=== PATIENT | female | born 1965 | race Caucasian/White ===

== ENCOUNTER → 2017-02-05 | Outpatient (CLI) | payer OTHER ==
--- NOTE | 2017-02-05 14:17 | REPMRS ---
Patient History The patient states she has not had a clinical breast exam in over a year. Patient is postmenopausal. Family history of colorectal cancer in maternal grandfather at age 50 or over and colorectal cancer in maternal grandmother at age 50 or over. Digital Mammo Screening Bilat: February 05, 2017 - Exam #: [id number] Bilateral CC and MLO view(s) were taken. Technologist: Adriana Duval, Technologist No prior studies available for comparison. FINDINGS: The breast tissue is extremely dense which could obscure a lesion on mammography. There is no evidence of cancer on this mammogram. ASSESSMENT: BI-RADS/ACR category 2 mammogram. Benign finding(s). Recommendation Routine screening mammogram of both breasts in 1 year (for women over age 40). This mammogram was interpreted with the aid of an FDA-approved computer-aided dectection system. Electronically Signed By: Karri Nixon MD 02/05/17 [id number]
== END ==
LOC: M RAD 12:06
PROVIDERS: ATTEND Nurse Practitioner Family
DX: Z12.31 Encounter for screening mammogram for malignant neoplasm of breast (principal); Z78.0 Asymptomatic menopausal state

== ENCOUNTER → 2017-12-25 | Outpatient (REF) | payer OTHER | LOC: M LAB REF 19:03 | DX: R31.9 Hematuria, unspecified (principal) ==

== ENCOUNTER → 2017-12-25 | Outpatient (CLI) | payer OTHER | LOC: M WUC 16:08 | DX: R31.9 Hematuria, unspecified (principal); M54.5 Low back pain; R93.5 Abnormal findings on diagnostic imaging of other abdominal regions, including retroperitoneum | CPT/HCPCS: 72110 ==

== ENCOUNTER → 2017-12-27 | Outpatient (CLI) | payer OTHER ==
[2017-12-27 17:52] LABS: BASO % 0.6 % (0.0-1.0); EOS # 0.1 10^3/uL (0.0-0.50); HEMOGLOBIN 13.9 g/dl (12.0-16.0); IMMATURE GRANULOCYTE % 0.1 % (0-3.0); LYMPH # 2.1 10^3/uL (1.5-4.5); LYMPH % 31.4 % (24.0-44.0); MEAN CORPUSCULAR HEMOGLOBIN 32.4 pg (27.0-33.0); MEAN CORPUSCULAR HGB CONC 32.3 g/dl (32.0-36.5); MEAN CORPUSCULAR VOLUME 100.2 fl (80.0-96.0); MONO # 0.7 10^3/uL (0.0-0.8); MONO % 10.1 % (0.0-5.0); NEUTROPHILS # 3.8 10^3/uL (1.8-7.7); NEUTROPHILS % 56.8 % (36.0-66.0); PLATELET COUNT, AUTOMATED 289 10^3/uL (150-450); RED BLOOD COUNT 4.29 10^6/uL (4.00-5.40); RED CELL DISTRIBUTION WIDTH 12.8 % (11.5-14.5); WHITE BLOOD COUNT 6.8 10^3/uL (4.0-10.0)
== END ==
LOC: M WUC 11:55
DX: N39.0 Urinary tract infection, site not specified (principal)

== ENCOUNTER → 2018-01-13 | Outpatient (CLI) | payer OTHER ==
[2018-01-13 13:02] LABS: BASO # 0.1 10^3/uL (0.0-0.2); BASO % 0.6 % (0.0-1.0); EOS # 0.1 10^3/uL (0.0-0.50); HEMATOCRIT 40.9 % (36.0-47.0); HEMOGLOBIN 13.5 g/dl (12.0-15.5); IMMATURE GRANULOCYTE % 0.3 % (0-3.0); LYMPH # 2.2 10^3/uL (1.5-4.5); LYMPH % 24.3 % (24.0-44.0); MEAN CORPUSCULAR VOLUME 96.9 fl (80.0-96.0); MONO # 0.8 10^3/uL (0.0-0.8); MONO % 8.8 % (0.0-5.0); NEUTROPHILS # 5.8 10^3/uL (1.8-7.7); PLATELET COUNT, AUTOMATED 329 10^3/uL (150-450); RED BLOOD COUNT 4.22 10^6/uL (4.00-5.40); RED CELL DISTRIBUTION WIDTH 12.3 % (11.5-14.5); WHITE BLOOD COUNT 8.9 10^3/uL (4.0-10.0)
[2018-01-13 13:33] LABS: ALBUMIN/GLOBULIN RATIO 1.25 (1.00-1.93); ALKALINE PHOSPHATASE 58 U/L (45-117); ALT/SGPT 22 U/L (12-78); ANION GAP 8 MEQ/L (8-16); AST/SGOT 16 U/L (7-37); BILIRUBIN,TOTAL 0.2 MG/DL (0.2-1.0); BLOOD UREA NITROGEN 22 MG/DL (7-18); CALCIUM LEVEL 9.1 MG/DL (8.5-10.1); CARBON DIOXIDE LEVEL 25 MEQ/L (21-32); CHLORIDE LEVEL 111 MEQ/L (98-107); CHOLESTEROL LEVEL 181 MG/DL (<200); FREE T3 2.8 PG/ML (2.2-4.0); GLOMERULAR FILTRATION RATE > 60.0 (>51); GLUCOSE, FASTING 101 MG/DL (70-100); HDL CHOLESTEROL 55 MG/DL (>40); LDL CHOLESTEROL 109.8 MG/DL (<100); NON-HDL-C 126 MG/DL; POTASSIUM SERUM 4.9 MEQ/L (3.5-5.1); SODIUM LEVEL 144 MEQ/L (136-145); THYROID STIMULATING HORMONE 0.955 uIU/ML (0.358-3.740); TOTAL PROTEIN 7.2 GM/DL (6.4-8.2); TRIGLYCERIDES LEVEL 81 MG/DL (<150)
== END ==
LOC: M WUC 09:17
DX: Z00.00 Encounter for general adult medical examination without abnormal findings (principal); Z13.220 Encounter for screening for lipoid disorders; R00.2 Palpitations
CPT/HCPCS: 84443

== ENCOUNTER → 2018-10-14 | Outpatient (CLI) | payer BC, OTHER ==
--- NOTE | 2018-10-14 15:01 | REPMRS ---
Patient History The patient states she has not had a clinical breast exam in over a year. Family history of colorectal cancer at age 50 or over in maternal grandfather, colorectal cancer at age 50 or over in maternal grandmother. Digital Mammo Screening Bilat: October 14, 2018 - Exam #: [id number] Bilateral CC and MLO view(s) were taken. Technologist: Adriana Duval, Technologist Prior study comparison: February 05, 2017, bilateral digital mammo screening bilat performed at [facility]. FINDINGS: The breast tissue is extremely dense which could obscure a lesion on mammography. There is an extremely dense symmetrical pattern of residual fibroglandular tissue. There has been no change in the appearance of the mammogram from the previous studies. There is no interval development of dominant mass, archetectural distortion, or microcalcific cluster suggestive of malignancy. 3-D tomosynthesis shows no additional findings. Assessment: BI-RADS/ACR category 1 mammogram. Negative. Recommendation Routine screening mammogram of both breasts in 1 year (for women over age 40). This patient's Lifetime Breast Cancer RIsk is estimated at 9.2 %. This mammogram was interpreted with the aid of an FDA-approved computer-aided dectection system. Electronically Signed By: Matt Villarreal MD 10/14/18 [id number]
== END ==
LOC: M RAD 13:42
PROVIDERS: ATTEND Nurse Practitioner Family
DX: Z12.31 Encounter for screening mammogram for malignant neoplasm of breast (principal)

== ENCOUNTER 2019-01-10 08:57 | Emergency (ER) | payer OTHER ==
[~2019-01-10] VITALS: Ht 157.5 cm; Wt 51.6 kg
[2019-01-10] MEDS ORDERED: ATEN25TA PO (09:04)
[2019-01-10] MEDS ORDERED: PARO20TA3 PO (09:04)
[2019-01-10] MEDS ORDERED: ADACEL/BOOSTRIX VACCINE (DIPHTH/PERTUSS/ACELL/TETANUS)0.5ML SYR (90715) IM ONE (09:30)
[2019-01-10] MEDS ORDERED: AUGMENTIN 875 MG TAB PO ONE (09:30)
[2019-01-10] MEDS ORDERED: AUGM875T28 PO (10:31)
[2019-01-10] MEDS ORDERED: PERC5TAB12 PO (10:31)
[2019-01-10] MEDS ORDERED: ONDA4TAB6 PO (10:31)
[2019-01-10 10:41] VITALS: BP 124/77
== END 2019-01-10 10:46 | disposition home or self-care (01) ==
LOC: M ED 08:57
DX: S61.207A Unspecified open wound of left little finger without damage to nail, initial encounter (principal); W54.0XXA Bitten by dog, initial encounter; Y92.89 Other specified places as the place of occurrence of the external cause; Y93.9 Activity, unspecified; Y99.0 Civilian activity done for income or pay; F32.9 Major depressive disorder, single episode, unspecified; Z72.0 Tobacco use; Z79.899 Other long term (current) drug therapy

== ENCOUNTER 2021-09-03 16:23 | Day surgery (SDC) | payer OTHER ==
[~2021-09-03] VITALS: Ht 157.5 cm; Wt 55.0 kg
--- OUTSIDE RECORDS SUMMARY | 2021-09-03 16:35 | CCD ---
Author Author [facility] Organization [facility] Address Unknown Phone Unavailable Care Team Providers Care Press Set Up Name Role Phone Geeta LOWE JRC Unavailable Unavailable CHRISSY LANCE J MIKE PA-C Unavailable Unavailable CHRISSY LANCE J MIKE PA-C Unavailable Unavailable CHRISSY LANCE J MIKE PA-C Unavailable Unavailable CHRISSY LANCE J MIKE PA-C Unavailable Unavailable CHRISSY LANCE J MIKE PA-C Unavailable Unavailable PICKERAL JR J MIKE PA-C Unavailable Unavailable PICKREMI LANCE J MIKE PA-C Unavailable Unavailable PICKERAL JR J MIEK PA-C Unavailable Unavailable PICKERAL JR J MIKE PA-C Unavailable Unavailable PICKERAL JR J MIKE PA-C Unavailable Unavailable CHRISSY LANCE J MIKE PA-C Unavailable Unavailable CHRISSY LANCE J MIKE PA-C Unavailable Unavailable CHRISSY LANCE J MIKE PA-C Unavailable Unavailable CHRISSY LANCE J MIKE PA-C Unavailable Unavailable CHRISSY LANCE J MIKE PA-C Unavailable Unavailable CHRISSY LANCE J MIKE PA-C Unavailable Unavailable CHRISSY LANCE J MIKE PA-C Unavailable Unavailable CHRISSY LANCE J MIKE PA-C Unavailable Unavailable PICKREMI LANCE J MIKE PA-C Unavailable Unavailable PICKERAL JR, J MIKE PA-C Unavailable Unavailable PICKERAL JR, J MIKE PA-C Unavailable Unavailable PICKERAL JR, J MIKE PA-C Unavailable Unavailable PICKERAL JR, J MIKE PA-C Unavailable Unavailable PICKERAL JR, J MIKE PA-C Unavailable Unavailable PICKERAL JR, J MIKE PA-C Unavailable Unavailable PICKERAL JR, J MIKE PA-C Unavailable Unavailable Acosta, Sylvia Rocio PA Unavailable Unavailable Acosta, Sylvia Rocio PA Unavailable Unavailable Acosta, Sylvia Rocio PA Unavailable Unavailable Acosta, Sylvia Rocio PA Unavailable Unavailable Aocsta, Sylvia Rocio PA Unavailable Unavailable Acosta, Sylvia Rocio PA Unavailable Unavailable Acosta, Sylvia Rocio PA Unavailable Unavailable Acosta, Sylvia Rocio PA Unavailable Unavailable Acosta, Sylvia Rocio PA Unavailable Unavailable Acosta, Sylvia Rocio PA Unavailable Unavailable CHRISTOPHER, B KATHY MD Unavailable Unavailable CHRISTOPHER, B KATHYCira FAUST Unavailable Unavailable CHRISTOPHER, B KATHYCira FAUST Unavailable Unavailable CHRISTOPHER, B KATHYCira FAUST Unavailable Unavailable CHRISTOPHER, B KATHY FAUST Unavailable Unavailable CHRISTOPHER, B KATHY FAUST Unavailable Unavailable CHRISTOPHER, B KATHY FAUST Unavailable Unavailable CHRISTOPHER, B KATHY FAUST Unavailable Unavailable CHRISTOPHER, B KATHY FAUST Unavailable Unavailable CHRISTOPHER, B KATHY FAUST Unavailable Unavailable CHRISTOPHER, B KATHY FAUST Unavailable Unavailable CHRISTOPHER, B KATHY FAUST Unavailable Unavailable CHRISTOPHER, B KATHY FAUST Unavailable Unavailable CHRISTOPHER, B KATHY FAUST Unavailable Unavailable CHRISTOPHER, B KATHY FAUST Unavailable Unavailable CHRISTOPHER, B KATHY FAUST Unavailable Unavailable CHRISTOPHER, B KATHY FAUST Unavailable Unavailable CHRISTOPHER, B KATHY FAUST Unavailable Unavailable CHRISTOPHER, B KATHY FAUST Unavailable Unavailable CHRISTOPHER, B KATHY FAUST Unavailable Unavailable CHRISTOPHER, B KATHY FAUST Unavailable Unavailable CHRISTOPHER, B KATHY FAUST Unavailable Unavailable CHRISTOPHER, B KATHY FAUST Unavailable Unavailable CHRISTOPHER, B KATHY FAUST Unavailable Unavailable CHRISTOPHER, B KATHY FAUST Unavailable Unavailable CHRISTOPHER, B KATHY FAUST Unavailable Unavailable CHRISTOPHER, B KATHY FAUST Unavailable Unavailable CHRISTOPHER, B KATHYCira FAUST Unavailable Unavailable CHRISTOPHER, B KATHYCira FAUST Unavailable Unavailable CHRISTOPHER, B KATHY FAUST Unavailable Unavailable CHRISTOPHER, B KATHY FAUST Unavailable Unavailable CHRISTOPHER, Reddy CHAVEZ MD Unavailable Unavailable CHRISTOPHER, Reddy CHAVEZ MD Unavailable Unavailable CHRISTOPHER, Reddy CHAVEZ MD Unavailable Unavailable CHRISTOPHER, Reddy CHAVEZ MD Unavailable Unavailable CHRISTOPHER, Reddy CHAVEZ MD Unavailable Unavailable CHRISTOPHER, Reddy CHAVEZ MD Unavailable Unavailable CHRISTOPHER, Reddy CHAVEZ MD Unavailable Unavailable CHRISTOPHER, Reddy CHAVEZ MD Unavailable Unavailable CHRISTOPHER, Reddy CHAVEZ MD Unavailable Unavailable CHRISTOPHER, Reddy CHAVEZ MD Unavailable Unavailable CHRISTOPHER, Reddy CHAVEZ MD Unavailable Unavailable CHRISTOPHER, Reddy CHAVEZ MD Unavailable Unavailable CHRISTOPHER, Reddy CHAVEZ MD Unavailable Unavailable CHRISTOPHER, Reddy CHAVEZ MD Unavailable Unavailable CHRISTOPHER, Reddy CHAVEZ MD Unavailable Unavailable CHRISTOPHER, Reddy CHAVEZ MD Unavailable Unavailable CHRISTOPHER, Reddy CHAVEZ MD Unavailable Unavailable CHRISTOPHER, Reddy CHAVEZ MD Unavailable Unavailable CHRISTOPHER, Reddy CHAVEZ MD Unavailable Unavailable CHRISTOPHER, Reddy CHAVEZ MD Unavailable Unavailable CHRISTOPHER, Reddy CHAVEZ MD Unavailable Unavailable CHRISTOPHER, Reddy CHAVEZ MD Unavailable Unavailable CHRISTOPHER, Reddy CHAVEZ MD Unavailable Unavailable CHRISTOPHER, Reddy CHAVEZ MD Unavailable Unavailable CHRISTOPHER, Reddy CHAVEZ MD Unavailable Unavailable CHRISTOPHER, Reddy CHAVEZ MD Unavailable Unavailable CHRISTOPHER, Reddy CHAVEZ MD Unavailable Unavailable CHRISTOPHER, Reddy CHAVEZ MD Unavailable Unavailable CHRISTOPHER, Reddy CHAVEZ MD Unavailable Unavailable CHRISTOPHER, Reddy CHAVEZ MD Unavailable Unavailable CHRISTOPHER, Reddy CHAVEZ MD Unavailable Unavailable CHRISTOPHER, Reddy CHAVEZ MD Unavailable Unavailable CHRISTOPHER, Reddy CHAVEZ MD Unavailable Unavailable CHRISTOPHER, Reddy CHAVEZ MD Unavailable Unavailable CHRISTOPHER, Reddy CHAVEZ MD Unavailable Unavailable CHRISTOPHER, Reddy CHAVEZ MD Unavailable Unavailable CHRISTOPHER, Reddy CHAVEZ MD Unavailable Unavailable CHRISTOPHER, Reddy CHAVEZ MD Unavailable Unavailable CHRISTOPHER, Reddy CHAVEZ MD Unavailable Unavailable CHRISTOPHER, Reddy CHAVEZ MD Unavailable Unavailable CHRISTOPHER, Reddy CHAVEZ MD Unavailable Unavailable CHRISTOPHER, Reddy CHAVEZ MD Unavailable Unavailable CHRISTOPHER, Reddy CHAVEZ MD Unavailable Unavailable CHRISTOPHER, Reddy CHAVEZ MD Unavailable Unavailable CHRISTOPHER, Reddy CHAVEZ MD Unavailable Unavailable CHRISTOPHER, Reddy CHAVEZ MD Unavailable Unavailable CHRISTOPHER, Reddy CHAVEZ MD Unavailable Unavailable CHRISTOPHER, Reddy CHAVEZ MD Unavailable Unavailable CHRISTOPHER, Reddy CHAVEZ MD Unavailable Unavailable CHRISTOPHER, B KATHY MD Unavailable Unavailable CHRISTOPHER, B KATHY MD Unavailable Unavailable CHRISTOPHER, B KATHY MD Unavailable Unavailable CHRISTOPHER, B KATHY MD Unavailable Unavailable CHRISTOPHER, B KATHY MD Unavailable Unavailable CHRISTOPHER, B KATHY MD Unavailable Unavailable CHRISTOPHER, B KATHY MD Unavailable Unavailable CHRISTOPHER, B KATHY MD Unavailable Unavailable MEAD, H RADHA Unavailable Unavailable Re-disclosure Warning The records that you are about to access may contain information from federally-assisted alcohol or drug abuse programs. If such information is present, then the following federally mandated warning applies: This information has been disclosed to you from records protected by federal confidentiality rules (42 CFR part 2). The federal rules prohibit you from making any further disclosure of this information unless further disclosure is expressly permitted by the written consent of the person to whom it pertains or as otherwise permitted by 42 CFR part 2. A general authorization for the release of medical or other information is NOT sufficient for this purpose. The Federal rules restrict any use of the information to criminally investigate or prosecute any alcohol or drug abuse patient.The records that you are about to access may contain highly sensitive health information, the redisclosure of which is protected by Article 27-F of the [facility] Public Health law. If you continue you may have access to information: Regarding HIV / AIDS; Provided by facilities licensed or operated by the [facility] Office of Mental Health; or Provided by the [facility] Office for People With Developmental Disabilities. If such information is present, then the following [facility] mandated warning applies: This information has been disclosed to you from confidential records which are protected by state law. State law prohibits you from making any further disclosure of this information without the specific written consent of the person to whom it pertains, or as otherwise permitted by law. Any unauthorized further disclosure in violation of state law may result in a fine or long-term sentence or both. A general authorization for the release of medical or other information is NOT sufficient authorization for further disc losure. Allergies and Adverse Reactions Type Description Substance Reaction Status Data Source(s ) Propensity to adverse reactions NO KNOWN ALLERGIES NO KNOWN ALLERGIES [facility] Family History Family Member Name Family Member Gender Family Member Status Date o f Status Description Data Source(s) Unknown Unknown Problem [facility] ([facility], [facility]) mgm,mgf Unknown Unknown Encounters Encounter Providers Location Date Indications Data Source(s ) Outpatient Attender: KATHY WHITE MD [id number] 02/28/20 12:00:00 AM EDT - 03/05/2021 04:30:13 PM EDT Contracture, left hand [facility] Contracture, left hand Outpatient Attender: MIKE LOWE JR Remy Thao 0 02/18/2021 02:00:00 PM EDT [facility] ([facility] ) Outpatient Attender: RADHA Motnezer: AKTHY WHITE MD [id number] 02/15/2021 12:00:00 AM EDT - 02/16/2021 12:00:00 AM EDT [facility] Outpatient Attender: KATHY WHITE MD [id number] 11/04/19 12:00:00 AM EST - 11/18/2020 03:48:48 PM EST Contracture, left hand [facility] Contracture, left hand Outpatient Attender: Rocio asencio 08/31/2020 12:35:00 PM EST [facility] Immunizations Vaccine Date Status Description Data Source(s) COVID-19 VACCINE Moderna 08/25/2021 12:00:00 AM EST completed NYSIIS Vaccine Series Complete: YESThis Data wa s Submitted to [facility] Via [employer]. COVID-19 VACCINE Valeriano 12/18/2020 12:00:00 AM EDT completed NYSIIS Vaccine Series Complete: YESThis Data wa s Submitted to [facility] Via [employer]. Medications Medication Brand Name Start Date Product Form Dose Route Admi nistrative Instructions Pharmacy Instructions Status Indications Reaction Description Data Source(s) Acetaminophen 325 MG / Hydrocodone Bitartrate 5 MG Ora l Tablet 5-325 mg HYDROCODONE/ACETAMINOPHEN 02/17/2021 12:00:00 AM EDT tablet 12 TAKE ONE TABLET BY MOUTH EVERY 6 HOURS NEEDED FOR PAIN FOR UP TO 3 DAYS MAXIMUM DAILY DOSE = 4 TAKE ONE TABLET BY MOUTH EVERY 6 HOURS A S NEEDED FOR PAIN FOR UP TO 3 DAYS MAXIMUM DAILY DOSE = 4 SOLD: 02/17/2021 [facility] 25 mg 02/11/2021 12:00:00 AM EDT tablet 30 TAKE ONE TABLET BY MOUTH EVERY DAY TAKE ONE TABLET BY MOUTH EVERY DAY SOLD: 04/29/2021 [facility] 25 mg 02/11/2021 12:00:00 AM EDT tablet 30 TAKE ONE TABLET BY MOUTH EVERY DAY TAKE ONE TABLET BY MOUTH EVERY DAY SOLD: 02/11/2021 [facility] 20 mg 02/11/2021 12:00:00 AM EDT tablet 60 TAKE ONE TABLET BY MOUTH EVERY DAY TAKE ONE TABLET BY MOUTH EVERY DAY SOLD: 02/11/2021 [facility] Atenolol 25 MG Oral Tablet ATENOLOL 01/06/2020 12:00:00 AM EDT tablet 30 TAKE ONE TABLET BY MOUTH EVERY DAY TAKE ONE TABLET BY MOUTH EVERY DAY SOLD: 11/10/2020 [facility] Atenolol 25 MG Oral Tablet ATENOLOL 01/06/2020 12:00:00 AM EDT tablet 30 TAKE ONE TABLET BY MOUTH EVERY DAY TAKE ONE TABLET BY MOUTH EVERY DAY SOLD: 12/18/2020 [facility] Atenolol 25 MG Oral Tablet ATENOLOL 01/06/2020 12:00:00 AM EDT tablet 30 TAKE ONE TABLET BY MOUTH EVERY DAY TAKE ONE TABLET BY MOUTH EVERY DAY SOLD: 09/23/2020 [facility] Insurance Providers Payer name Policy type / Coverage type Policy ID Covered green party ID Covered green party's relationship to merida Policy Merida Plan Information [id number] [facility] DIV [id number] SP [id number] [employer] Medigap Part B [id number] [employer] [id number] [id number] [employer] WC Workers Compensation [id number] Self UMR [facility] [id number] [id number] [employer] WC W [id number] Empl [id number] REMY CLAIMS ADMIN NCA WC W [id number] Empl [id number] [employer] WC W [id number] Empl [id number] RISK MANANGEMENT WC W [id number] Empl [id number] RISK MANANGEMENT WC W [id number] Self [id number] [employer] WC W [id number] Empl [id number] UMR [id number] SELF PAY UMR [id number] UMR O [id number] S [id number] [facility] [id number] SP [id number] [employer] PPO O [id number] P [id number] [employer] Commercial [id number] Family Dependent [id number] [employer] [id number] SELF [id number] [employer] [id number] 2 [id number] OTHER WORKERS COMPENSATION [id number] SP [id number] [employer] [id number] Family Dependent [employer] PPO P [id number] P [id number] [employer] RISK MANAGEMENT S [id number] S [id number] SELF PAY P S UMR/[employer] RISK MANAGEMENT [id number] SP [id number] UMR [id number] ANSI-Not a Secondary Insurance [id number] ANSI-Not a Secondary Insurance [id number] ANSI-Not a Secondary Insurance [id number] UMR/[employer] RISK MANAGEMENT [id number] SP [id number] ANSI-Not a Secondary Insurance [id number] ANSI-Not a Secondary Insurance [id number] ANSI-Not a Secondary Insurance [id number] Problems, Conditions, and Diagnoses Code Display Name Description Problem Type Effective Dates Data Source(s) M24.542 Contracture, left hand Contracture, left hand Diagnosi s 02/27/2021 11:12:15 AM EDT [facility] Surgeries/Procedures Procedure Description Date Indications Data Source(s) SURGERY CASE REQUEST OUTSIDE FACILITY ONLY <td>SURGERY CASE REQUEST OUTSIDE FACILITY ONLY</td><td>Routine</td><td>11/04/2020 4:48 PM EST</td><td> 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 Name Value Range Interpretation Code Description Data Janey rce(s) Supporting Document(s) Progress Note [facility] VUTNIo4xSyWPUpUv30/HRZjcKWGza1VsKNubZPp4DYklZTKeF0AdZMX8nI9aYPW1MPmWPdQyObEjCPW8 lbm [file] ICAgICAgICAgICAgICAgICAgICAgICAgICAgICAgIC AgICAgICAgICAgICAgICAgICAgICAgICAgICAgICAgICAgICAgICAgICAgICAgICAgICAgICAgICAgIC GvBFVwRW0HQJJwPRXdZEHhILBrWDTbMIZsIUWgSXFsLALkUDJqJUIwATWoCSDlNOJyZRJpNLVdRPWwZJ AgICAgICAgICAgICAgICAgICAgICAgICAgICAgICAg UJXtOUVvXEZzGBLkLPZmBL0DFHZnVJUhBVTsJFDoXMTeCIScNHAeELBgUWQtRTPzIPPjCJBmOMYgGXCe XZEcUAOsOFXuBWRbWXQqZFWaMGSuVMDwNJWoXHKwDBOuFKUlKZNjQJDkXFXlZLXaOBFuJBPlTVCjCO3G ICAgICAgICAgICAgICAgICAgICAgICAgICAgICAgIC AgICAgICAgICAgICAgICAgICAgICAgICAgICAgICAgICAgICAgICAgICAgICAgICAgICAgICAgICAgIC AaYKEmWUQjDS5FFUYdCXIqFMRbNWWdUGPoOKSfSGTrFCCjELSdOZVcGXJwYJXeIIOoIEMbVZMeDCCsMZ AgICAgICAgICAgICAgICAgICAgICAgICAgICAgICAg FMHlSNNgMAUnOYBmYDWoBGGmOS0GTLMsPEEdKVAkASGlOXCkQSKeHTWxPBUaMERxHCKmSVKiMBOlPCBs ICAgICAgICAgICAgICAgICAgICAgICAgICAgICAgICAgICAgICAgICAgICAgICAgICAgICAgICAgICAg IG3MNIWhZGIkOFPoOBAhMBUmOBHiCODmUZEvDQRuDR AgICAgICAgICAgICAgICAgICAgICAgICAgICAgICAgICAgICAgICAgICAgICAgICAgICAgICAgICAgIC JoNSKwQEVgPTBjKD9ICYVuWNJzOXIgYLFjENVjKIHcNJEiHABfFUUuDIVvJMLxMXUlJUOmYFAfOBHkYD AgICAgICAgICAgICAgICAgICAgICAgICAgICAgICAg MSXwBUWsJUDlCVWrFMSjXEQxNHBrBS6FIZKmMKNgVQKfQSYxOOTnOCWdPRRtJPMrBKGkNPZaPUOmGAKp ICAgICAgICAgICAgICAgICAgICAgICAgICAgICAgICAgICAgICAgICAgICAgICAgICAgICAgICAgICAg PCVkVJ6BNIToABUqJVJeFWYiXYSjKBQzNXLuFXWcHU AgICAgICAgICAgICAgICAgICAgICAgICAgICAgICAgICAgICAgICAgICAgICAgICAgICAgICAgICAgIC OkNDByNUOuJONuAGIdUX8RDZ49tDSuj8C5VIJnVF8jdrc/Xt0ZCCtvskUxtEKfRR1GDuOdTB9ceb6JSv YlVG4mrx8WVQbKDvBlH7W7kCPjAZNdQKWLXtThI82k XImxYl33HZqxKZZrZqBnBKl2Fk7FQeDdN4svWBQrGlN9IRSjXcTvTAciWY8Ev5PdbKJiIZc+Ez5KZM9t g4JoGMkvNXOuJF9lfo9JADfFQkPiW5AjsaW2XAGsTAJpBl4FZQUhVXZgcWWoTHWkSINKTaVzT7BtnK35 IDENCj4+DEjcluBaAsoFCpVpURLbg5ZeTSo7LR0LYQ ReHAh9uRJmYZHfQ3Vva9AlBs20YHTnVzmuAu1vJVojBcQ6jszbUZQiMACyPA4lRp0yJJGsSSUwQbJ3FR WZUQ9SHRXaIMVuyZFlPTCgRRFGXT7VVVnqQUG7MCHyglHmqTSoBBhfFG5ALQMkiaGfKPrrMWMIZVg+Pg 4SEF7kx9ClFEbcVIMdOQ8ijo0XCVqBStXpM3V6hDOn E6L7SIabXn0CFPDwSPBpMEinTIWVIKcfWX8QLT7nejJ5NY7XfJMtEEMlSYJpfDDmKFi5F77qzTZyTSfz HD1WHBJ+Telly+Kq4PCUOhHOKiAHTzGxRnRZSPOgCrM9BeW7KUe7PfA0VzDJ68bXtpeoAfCSwuAZ4RMF7k VCTgNBIGDH9SoARrcB4yxyBfBLJwAWNTYfJzB11saY JrXKLiRUW9EWKlFs6HHJBqX1BoteHpvIqefjKhTMCiQGDWBQ4ZUKmndxNdmNJsqChaJU58mXfcHW9MNy 0PTqFqMQ1trf2RvQGrEu9ZNAQhJk0OTRFyLBKkDJOkBDC5GYUaJoFhKYvrGHJtXYAsOHC4VILhAQKtLK 9PRlGbWBLbRGkkZYlgPWIxPKNrhn0IGRBjGCMtBSo9 WWFqVTRqOZTgYIigBPBtQGIlJGE1CIWuEYTcCE7QVuHqQZXiHXMnSiPrCQWqMJDzpi8AHNPlJYJcBiP0 GcVlBBBgTMKvQYucKUAeINF0CoR5ZRHyFUBkUQ0XZwZyQITtBCG2PnQvVFLaHQUwgd1NIRRjVAShGUGk VoKjBIGePHLrULwhLICdYZD3VQbwUTLhFRGkLC3ULo JxMJAyNTQ0XsJfJBGbKYSylz3RLWGtFYCjFJt4MSUnDQNgDWUjRXxiMXTlNCB0FfZ9PPNoBVZvIT2FYn YbVQPfVZh8PiYlRTWlTLPmud5STSCsTAVsSlnaKYAcCKFqZSYaIVgvCIOjPMT1QLm6XXFeKRIwDW5HGb JgKEUlPPkhPgUaUEBmEVRnxa1LFRYxBHKrDAKwHVFd SMCnFUKbLZjlHVUjROBvHLObAHUjHLQuTB8APlYeUDVgTkQtWcDnXHGfCXHekz6RZZVbSDMxERL1OCHp ABQaJHWoFEv2gzAtzJZsRPr1GI1CF4YucmTiIlBSHc6Oh019BKBxHYDtMh1PF3nyEf4oQUSqZQIAUc3R RKl0Z0F9KvsbBWAjBbXtPnM2IJSzSGRvBskoBVLqCy M0NDQ+YMz5BWVvKbGiQWXsPJPyOsA5SmVmV6OhFeEpEDV9VrT4UG3dJXWZIr6+DQpzdGFydHhyZWYNCj DxYDDiCWljYIWBJn7M ID Date Data Source [id number] 02/18/2021 02:14:00 PM EDT [facility] ([facility]) Name Value Range Interpretation Code Description Data Janey rce(s) Supporting Document(s) Cholesterol [Mass/volume] in Serum or Plasma 215 mg/dL 131-200 [facility] ([facility]) Triglyceride [Mass/volume] in Serum or Plasma 258 mg/dL 30-150 [facility] ([facility]) Cholesterol in HDL [Mass/volume] in Serum or Plasma 59 mg/dL 35-60 [facility] ([facility]) Cholesterol in LDL [Mass/volume] in Serum or Plasma by calcu lation 104 CALC 50-159 [facility] ([facility]) ID Date Data Source [id number] 02/18/2021 02:14:00 PM EDT [facility] ([facility]) Name Value Range Interpretation Code Description Data Janey rce(s) Supporting Document(s) Glucose [Mass/volume] in Serum or Plasma 95 mg/dL 74-99 [facility] ([facility]) 100-125 mg/dL PRE-DIABETES/FASTING >126 mg/dL DIABETES/FASTING Creatinine 0.9 mg/dL 0.6-1.3 [facility] Urea nitrogen [Mass/volume] in Serum or Plasma 15 mg/dL 7-18 [facility] ([facility]) Sodium [Moles/volume] in Serum or Plasma 138 meq/L 136-145 [facility] ([facility]) Potassium [Moles/volume] in Serum or Plasma 4.2 meq/L 3.5-5.1 [facility] ([facility]) Chloride [Moles/volume] in Serum or Plasma 102 meq/L 98-107 [facility] ([facility]) Carbon dioxide, total [Moles/volume] in Serum or Plasma 24 meq/L 21 -32 [facility] ([facility]) Calcium [Mass/volume] in Serum or Plasma 9.0 mg/dL 8.5-10.1 [facility] ([facility]) Alkaline phosphatase isoenzyme [Units/volume] in Serum or Pl asma 70 mg/dL 46-116 [facility] Total Bilirubin 0.4 mg/dL 0.2-1.0 [facility] ([facility]) Alanine aminotransferase [Enzymatic activity/volume] in Seru m or Plasma 24 U/L 12-78 [facility] ([facility]) Aspartate aminotransferase [Enzymatic activity/volume] in Serum or Plasma 25 U/L 15-37 [facility] ([facility] ) Proteinase 3 Ab [Units/volume] in Serum 7.8 g/dL 6.4-8.2 [facility] ([facility]) Albumin [Mass/volume] in Serum or Plasma 4.3 g/dL 3.4-5.0 [facility] ([facility]) Glomerular filtration rate/1.73 sq M pre dicted among non-blacks [Volume Rate/Area] in Serum or Plasma by Creatinine-based formula (MDRD) Laboratory test result [facility] ([facility] ) A/G Ratio 1.23 CALC 1.00-1.90 [facility] ([facility]) Glomerular filtration rate/1.73 sq M pre dicted among blacks [Volume Rate/Area] in Serum or Plasma by Creatinine-based formula (MDRD) Laboratory test result [facility] <content>CHRONIC KIDNEY DISEASE STAGING PER NKF</content>
<content></content>
<content>STAGE I & II GFR >= 60 NORMAL TO MILDLY DECREASED</content>
<content>STAGE III GFR 30-59 MODERATELY DECREASED</content>
<content>STAGE IV GFR 15-29 SEVERELY DECREASED</content>
<content>STAGE V GFR <15 VERY LITTLE GFR LEFT</content>
<content>ESRD GFR <15 ON [employer]</content>
<content></content> ID Date Data Source [id number] 02/18/2021 02:14:00 PM EDT [facility] Name Value Range Interpretation Code Description Data Janey rce(s) Supporting Document(s) Leukocytes [#/volume] in Blood by Automated count 8.6 x10*3/UL 4.1-10 .9 [facility] ([facility] Hemoglobin [Mass/volume] in Blood 15.1 g/dL 12.0-18.0 [facility] ([facility] Erythrocytes [#/volume] in Blood by Automated count 4.52 x10*6/UL 4.2 0-6.30 [facility] ([facility] Hematocrit [Volume Fraction] of Blood by Automated count 43.1 % 3 7.0-51.0 [facility] ([facility] MCV 95.2 fL 80.0-97.0 [facility] MCH 33.3 pg 26.0-32.0 [facility] ([facility]) MCHC 35.0 g/dL 31.0-38.0 [facility] Platelets [#/volume] in Blood by Automated count 317 x10*3/UL 140-440 [facility] ([facility]) Erythrocyte distribution width [Ratio] by Automated count 12.8 % 11.6-13.7 [facility] ([facility]) MPV 7.5 FL 7.8-11.0 [facility] Lymph % 27.2 % 10.0-58.5 [facility] Lymph # 2.3 x10*3/UL 0.6-4.1 [facility] ([facility]) Neut % 66.3 % 37.0-92.0 [facility] Mid % 6.5 % 1.7-9.3 [facility] Mid # 0.6 x10*3/UL 0.1-0.6 [facility] ([facility]) Neut # 5.7 x10*3/UL 2.0-7.8 [facility] ([facility]) ID Date Data Source [id number] 02/15/2021 11:51:[address] [facility] Name Value Range Interpretation Code Description Data Janey rce(s) Supporting Document(s) Progress Note [facility] JJAYVp5fZsVBYiFi91/IIXofURYzp4XxJQkgGDq8QWjiLZZeW0EjIQH6dQ7iKQJ4XCuTSaTcDxJiHEB5 lbm [file] ICAgICAgICAgICAgICAgICAgICAgICAgICAgICAgICAgICAgICAgICAgICAgICAgICAgICAgICAgICAg ICAgICAgICAgICAgICAgICAgICAgICAgICAgICAgDQ ogICAgICAgICAgICAgICAgICAgICAgICAgICAgICAgICAgICAgICAgICAgICAgICAgICAgICAgICAgIC AgICAgICAgICAgICAgICAgICAgICAgICAgICAgICAgICAgICAgICAgDQogICAgICAgICAgICAgICAgIC AgICAgICAgICAgICAgICAgICAgICAgICAgICAgICAg ICAgICAgICAgICAgICAgICAgICAgICAgICAgICAgICAgICAgICAgICAgICAgICAgICAgDQogICAgICAg ICAgICAgICAgICAgICAgICAgICAgICAgICAgICAgICAgICAgICAgICAgICAgICAgICAgICAgICAgICAg ICAgICAgICAgICAgICAgICAgICAgICAgICAgICAgIC AgDQogICAgICAgICAgICAgICAgICAgICAgICAgICAgICAgICAgICAgICAgICAgICAgICAgICAgICAgIC AgICAgICAgICAgICAgICAgICAgICAgICAgICAgICAgICAgICAgICAgICAgDQogICAgICAgICAgICAgIC AgICAgICAgICAgICAgICAgICAgICAgICAgICAgICAg ICAgICAgICAgICAgICAgICAgICAgICAgICAgICAgICAgICAgICAgICAgICAgICAgICAgICAgDQogICAg ICAgICAgICAgICAgICAgICAgICAgICAgICAgICAgICAgICAgICAgICAgICAgICAgICAgICAgICAgICAg ICAgICAgICAgICAgICAgICAgICAgICAgICAgICAgIC AgICAgDQogICAgICAgICAgICAgICAgICAgICAgICAgICAgICAgICAgICAgICAgICAgICAgICAgICAgIC AgICAgICAgICAgICAgICAgICAgICAgICAgICAgICAgICAgICAgICAgICAgICAgDQogICAgICAgICAgIC AgICAgICAgICAgICAgICAgICAgICAgICAgICAgICAg ICAgICAgICAgICAgICAgICAgICAgICAgICAgICAgICAgICAgICAgICAgICAgICAgICAgICAgICAgDQog ICAgICAgICAgICAgICAgICAgICAgICAgICAgICAgICAgICAgICAgICAgICAgICAgICAgICAgICAgICAg ICAgICAgICAgICAgICAgICAgICAgICAgICAgICAgIC OiNJScMQXwYGx3V8hhISHbRBZaWP0kBCg3Mp0+VLqHPaOcKZL6kwNofE7HKA8tz2VrREkiMRHye2UoID g5IE5PWLIbSOjcXF5IBMwsnh9YMLQzTIXoqDLUc1egCvFmDOJ7PZKlZgyyEM7GKPNcC8tfjvCnFXEaHQ KURS9QYeCeZ6EgmW99IWCBWl2+DQplbmRvYmoNCjE5 BBXqs2RiNJe6UU2KSVMhNcdmd4WyPhPqKLESNXgiQI5IROI2QIMvNDJoSa3AJSLvA813ofMfXZ4YHm7F PqJnEX1oiu4TIiBiEVNfGzpKAmz3FOxfYH2DvRPcSKxDop0sncResqERb5LqifOmtHSUHLThuLNfiJ2z GHmmKJOfMEsuEg9gDBCmRV9aEE8uRXFkCJXlCoYiZW LJBO5HMJTbWHZrpGCyRBLxFEVHWJ3CUBihXLL9WUJpovOsiCMqIUdaUG6KZRSswuUpTPojJFEXTMk+Pg 8LRX5tr0PsWIreYJYzAA9fty7HRShRZtGqY2J0fUKgK3O7ZXfpCg2ZLFOwOJAvSPexFBBBTFgtIZ4FXF 8jowO1AB7UmBLpPVJnUKPzhSBtIVj6I94jjLItRYdu WE0USEG+Telly+Cm5AGEKkAZYnTXHuSyNiOZPFLpDbM8RzH6UMm1CgI1UyAS97mBbqcfLdICvdZK6ZEJ2a PWRaPFCPUW5UoTDukX4wnlPlAEOeMRKMXkQzO87jdHMrNEBeRLG0TVPjLp7HGCFcM5OvdyYigYsfmmNj EMObNLBIWR1JJGrspgFnyFAtqOmfJL05vLubPD5ADz 7SIhRtUM5hxc8UpAIsDv5TBOVoFs2NXQIoHIUuCYJlZLW5UHDtDxLfXVjkTQByHNZdTOQ7IADsCYWjDC 7SXxZnMBLvDNxtZzTtMXHsTCBxoe1WDSJwXAUiKRy0NYGvJLGtUQArDZpwUUAuKUYiVOX7YRLtTPDzHD 6RZsSfZBLjGHViJOirNUKvSUAhoh7OZTLuJGZlJeWp OFZjVVYnIKQwCAymBDVdKXYhXjWuNOSmAHOiNY7OGdLbHGKbNQK5JDRoPFHhVKMnbq1JJFEmLKDoIkZg GxBeMQFmEKFaFWiqSERmTNG4ZNb4FXJbPXJhHA0JZsPlFRVkALH5EDBlABWuPHGrqv6HTZTyHATlVAy2 ZeVxGZLcZZNnDRuzTYMuCLE9IxB7ZSApHNZnMJ3XUl KvYFFpCYM7HOJiZKRzRSShgw7FXHNaHUQlUaa7GuBiLFFzYNGgXHuqKFQuXRX1HYIcFMIyRXMbRQ8JFp KmAZYvCWnrVWrbVMLbHZTpzr1PIZZrQBEsVkU6SHSyDHObEVLtQIaiNGJbWVB3WNx0OEZbYRQvEL7LNd JgTCUqMAthLOirOCQbKYOkhg3LJKUsTHHfJCZxEOWo BBMxKBNxZIk7muPvxGUkCOb2RW7TB3KukeReBrETNb8Ym420LYRxKPRxUc7YM9nuNa4oMPCcHQGCDg0C TOz2TQFlRSIdYoMxIVv1SCCyQYU8TuO5IxPpYFCxWTXhQir+QCdxUdJzR6N8PJQxYRavEnWrYhBaYnth LVKzHmY0VyKaBY0qBWLLPh3+BQpqyMXqoTepZHAQHuE8ZYH7CNvjYDNOPq5K ID Date Data Source [id number] 02/15/2021 11:51:00 AM EDT [facility] Name Value Range Interpretation Code Description Data Janey rce(s) Supporting Document(s) SARS-CoV-2 RNA 2018 nCoV Real-Time RT-PCR: NOT DETECTED [facility] This lab was ordered by [facility] and reported by [facility]. ID Date Data Source [id number] 02/16/2021 12:59:[address] [facility] Name Value Range Interpretation Code Description Data Janey rce(s) Supporting Document(s) Specimen source [Identifier] of Unspecified specimen [facility] SARS-CoV-2 RNA 2019 nCoV Real-Time RT-PCR: NOT DETECTED [facility] Assay Performed [facility] Patients first test for condition [facility] Patient employed in healthcare setting [facility] Patient has symptoms related to [facility] When did you start to experience these symptoms [Date and time] [Phen X] [facility] Patient was hospitalized because of this condition [facility] patient was admitted to ICU for [facility] Patient resides in a congregate care setting [facility] status [facility] ID Date Data Source [id number] 11/04/2020 04:46:[address] [facility] Name Value Range Interpretation Code Description Data Janey rce(s) Supporting Document(s) Progress Note [facility] EREMZb8qJiRFThHw05/TQUhvIEUpi9CaEOvoIQr3YSqhYDIwW5YnCUS7dZ2pJMT6CDoQAyAwBnEwJlDo lbm UwQzqNRrBlEBSmMujXBfUdFGizClpggCEtNP5UjHE9WTEpL50pCMIqSFJpG7KnEJW3COU+Pm0CPXTefJ WiOD8HBqzH8E3Rqev7FR7UWy9ZllMCbEL8EzOpfdcx33NqK8ofxoXafR2avPgsBP1YTk5Xl77uRVpr2A diBjNWdmM/OD5CaEMznWQYFfC/+0qaUY6fIEM8o/oz mBZ3Impb/10hT0Mi1yk9O/JLbtCp7ZtlNojzEa1s6Bbd3u1diGJUaNYxuUIN8vL9ryEG5uIK5Cc+/Hm6 Wn6ig7VUF4f/snj7GjIP+VEk33/2hag0WF211v1ikiTiUcjbgtS/kKES5DD1rzIl7jVpdgXrrMYnrhSn K6CYf5PLrPp+7pJgV26h+TCytgid8dmZC8t3X4cqGX HIpj5BTORuKY8gxcWXXF3qsoEKgd5oH/VbER0G7+nNvD+1BM3l7L0JmeMpPefQuc+htsJAnrhIKy2Qiq RdAd7QOG4v58C0zNpTTGfjEpg1PFaphDcV/5DTyZF3rJY86e3UItlFnNV4KIcd5/Q7rC6mIeEZC+6+Uv mddq2w9IR0hh9HPy9AgWu05UEbiucHabEIR9pVPWtj np9dnh+Tz853VmGIii6y/POodyVeHV4+P78UZ++R7K7geHiSQTR2Y65wgBrBIlVJIhxDJ2467aab29bY vX/2ajqObQb/fptwQChygCgikDiY0NuuC8Vjb81vAyoilnIPzXDYlc8M7ZviaBZYr6uZ1qVyNiJvQONr BWoetsQUXx7w8CqNvzUSouhqCtxssxcG7QsF4ixXqB i6G/NyWGIvGl8Wo/bBcofL0N4xK6Gg1GjF7ln4xlQfLT4F24aZ2c1HVrxaiSb1tYKB03RgE1qiz+Sarah [file] AgICAgICAgICAgICAgICAgICAgICAgICAgICAgICAg ICAgICAgICAgICAgICAgICAgICAgICAgICAgICAgICAgICAgICAgICAgICAgICAgICAgICAgICAgICAg ICANCiAgICAgICAgICAgICAgICAgICAgICAgICAgICAgICAgICAgICAgICAgICAgICAgICAgICAgICAg ICAgICAgICAgICAgICAgICAgICAgICAgICAgICAgIC AgICAgICAgICAgICANCiAgICAgICAgICAgICAgICAgICAgICAgICAgICAgICAgICAgICAgICAgICAgIC AgICAgICAgICAgICAgICAgICAgICAgICAgICAgICAgICAgICAgICAgICAgICAgICAgICAgICANCiAgIC AgICAgICAgICAgICAgICAgICAgICAgICAgICAgICAg ICAgICAgICAgICAgICAgICAgICAgICAgICAgICAgICAgICAgICAgICAgICAgICAgICAgICAgICAgICAg ICAgICANCiAgICAgICAgICAgICAgICAgICAgICAgICAgICAgICAgICAgICAgICAgICAgICAgICAgICAg ICAgICAgICAgICAgICAgICAgICAgICAgICAgICAgIC AgICAgICAgICAgICAgICANCiAgICAgICAgICAgICAgICAgICAgICAgICAgICAgICAgICAgICAgICAgIC AgICAgICAgICAgICAgICAgICAgICAgICAgICAgICAgICAgICAgICAgICAgICAgICAgICAgICAgICANCi AgICAgICAgICAgICAgICAgICAgICAgICAgICAgICAg ICAgICAgICAgICAgICAgICAgICAgICAgICAgICAgICAgICAgICAgICAgICAgICAgICAgICAgICAgICAg ICAgICAgICANCiAgICAgICAgICAgICAgICAgICAgICAgICAgICAgICAgICAgICAgICAgICAgICAgICAg ICAgICAgICAgICAgICAgICAgICAgICAgICAgICAgIC AgICAgICAgICAgICAgICAgICANCiAgICAgICAgICAgICAgICAgICAgICAgICAgICAgICAgICAgICAgIC AgICAgICAgICAgICAgICAgICAgICAgICAgICAgICAgICAgICAgICAgICAgICAgICAgICAgICAgICAgIC ANCiAgICAgICAgICAgICAgICAgICAgICAgICAgICAg ICAgICAgICAgICAgICAgICAgICAgICAgICAgICAgICAgICAgICAgICAgICAgICAgICAgICAgICAgICAg ICAgICAgICAgICANCjw/aQQnM0cufYPzmwL2Q3goAa3UTx9VUQ1rq3YiPSEfJRpkmeRpZanSKqLjTNHw NptNVqq3FKavMX7AcIBwS7DhV4AmFDjxSJ0CONTwAK IzfNPcGERpJZXkBwO5UHKtVQrqJN0YdXOgFDnkRKQvNMDoUF1QHKYzT934fpHuME6SEl8XQeFnLO1vcg 3QPwVfEDJiHmgGQwx0ORhwZY9UnUPmjDLmZxLmYWRBJuFzR4tby8LlSbCvEBJSKCqjUA4Fn3CkzLKxBW o+Xk6QDP2ut3WzOUwlJmUqHX6enz4WDRcLJdAhN6Zz uWccLXAjd6bbNWIzCV5yvKTlECM0AOtgttGMq6H3uRCpCG1COUJ2SHCrQT3vEDHuNZU7VfH0NZROGD4K JXUlHRWapMLrRSGqQLNREF5FIPjhISE4SIMpseZgqVWsZIvwRT0GFKNnmtBaZkIfCXNWYVx+Rx8ZTM1a w5DuBMwgHJCwMY5xrq1SBFaJEuLgA2E4zPTlN3J4SS lnEl1DIYLzSJWqTzTlUFKPCIxpRZ9MAN1cibA8JL9NkLHtOKYgWQBkeSOwEFv8S98mwIPmGJprYR3BMB A+Telly+Iw3QEDKtXCFpKIZjFgIqATSYSaStT2BvU5FTr9TmB5UgZM14vDpgskFfLPrcLA8XNM8zPEWuCS BJSX8RlWUhmU1kslVnKrKvWKKOXcSwV79mlRLaBLCg KRPyGBTeTs8PYBKhL3UpzzDjnAvhvzRkNTCmXQQFKY4NZBflfeBkrTHisHasXS56wAueFB1NEo5EMiPz NF6lfn6NgJEsTb5AWXVtMH0LOBIeUNUgWLImIDB8WRDfWgFgQXrkSYPgKLKoPNK7SVTmBNDtWQ3GAkOn HTZcPPw2YURlFTPcYNEssf1VJWJmMVWnJNHyXHTeSC LgSFIhRJblZXBcVCMrPMG1WCRiBZScPH2MMcZkSGEnTEYbFxVoFXUyZDUrqe3RNFBeBCAaPwMxEQVdWW MbXTGhYYatVBPjQPW0Hna7XSEwWFPtCF4XIiDvCQGsPBI8PFNpTKAwUIXuct1IGMPcDSZdHGE9TECnPN VvDXWiUCjoMCIwLVC8MxG7ZKNzZZVhAL0GJyGlODPh RJJ5PiUdKCZvXEMnof8KJTJwCZAkBmYbQnIkDAOaTGYiVMjvJPPrVHV0YsTlLUOmVMRuKW7UFjFbHYPv WRq9BjgwEWPgXLGgte0PFACdKOJgMeu9XoJoZGHdAAQcPFitGWKzOBK7RIE3IILkLTFbKH9UJgAjFZXc ECaaTpNuSVBiHWSrga8DTWLoAMUnLHLrStYzMCUrKL HaUNcwLGWdVKK2Vlk6HZMzQKLxYU2XKrQiVQUfUOv5KcqrSAYmQBOzlj2DALPkIBQnDYu9SOScDWUzGS NkYLlkUJSfMQDvDRZfDAPoHXXrRZ0PPrXvSIKzQmS2BMRpVOXjTVHljw4OQGKtXMSjJVKuRNNkFESbXT DgDRi1pmAsrISzGJa9HZ6OZ8VixgZvShSYEj7Ht917 QNE4YMGnJn9RW1ksHv8iBQQzXEXQTj2APOp5RdFmWJM6CAElNrFdYJBxWam9HFRrOaP1QPdcTBOeXdK+ WScmSKEgPSY0KEKyWMY3WKEyLBD9QVVkVdygGTTcD9LaQU5oZHXYFp9+DQpzdGFydHhyZWYNCjIxODgy LLtuRMSMQo9S ID Date Data Source [id number] 08/31/2020 12:00:00 AM EST [facility] Name Value Range Interpretation Code Description Data Janey rce(s) Supporting Document(s) [facility] 2 [facility] by [facility] and reported by [facility]. Procedure Social History Code Duration Value Status Description Data Source(s ) Alcohol intake 02/27/2021 12:00:00 AM EDT Current drinker of al cohol (finding) completed Current drinker of alcohol (finding) [facility] Tobacco use and exposure 02/27/2021 12:00:00 AM EDT Never used co mpleted Never used [facility] Smoking 02/27/2021 12:00:00 AM EDT Current every day smoker co mpleted Current every day smoker [facility] Alcohol intake 11/04/2020 12:00:00 AM EST Current drinker of al cohol (finding) completed Current drinker of alcohol (finding) [facility] Vital Signs ID Date Data Source UNK Name Value Range Interpretation Code Description Data Source(s) Body mass index (BMI) [Ratio] 21.9 kg/m2 21.9 k g/m2 [facility]) Systolic blood pressure 153 mm[Hg] 153 mm[Hg] [facility] Diastolic blood pressure 89 mm[Hg] 89 mm[Hg] [facility] ([facility]) Heart rate 102 /min 102 /min [facility] ([facility], [facility]) Respiratory rate 14 /min 14 /min [facility] ( [facility]) Oxygen saturation in Arterial blood by Pulse oximetry 99 % 99 % [facility] ([facility]) Body temperature 99.1 [degF] 99.1 [degF] [facility] ([facility]) Body weight 120.00 [lb_av] 120.00 [lb_av] [facility] ([facility], [facility]) Body height 62 [in_i] 62 [in_i] [facility] ([facility]) 5'2" Body mass index (BMI) [Ratio] 22.9 kg/m2 22.9 k g/m2 [facility]) Systolic blood pressure 116 mm[Hg] 116 mm[Hg] [facility] Diastolic blood pressure 76 mm[Hg] 76 mm[Hg] [facility] ([facility]) Heart rate 65 /min 65 /min [facility]) Body height 61.25 [in_i] 61.25 [in_i] [facility] 5'1.25" Body weight 122.00 [lb_av] 122.00 [lb_av] [facility] ([facility]) Oxygen saturation in Arterial blood by Pulse oximetry 99 % 99 % [facility] ([facility]) Air Respiratory rate 16 /min 16 /min [facility] ( [facility], [facility]) Heart rate 67 /min 67 /min [facility] ([facility], [facility]) Systolic blood pressure 142 mm[Hg] 142 mm[Hg] [facility] ([facility], [facility]) Diastolic blood pressure 78 mm[Hg] 78 mm[Hg] [facility] ([facility], [facility]) Body temperature 98.0 [degF] 98.0 [degF] [facility] ([facility], [facility]) Body weight 120.00 [lb_av] 120.00 [lb_av] [facility] ([facility], [facility]) Body height 62 [in_i] 62 [in_i] [facility] ([facility], [facility]) 5'2" Body mass index (BMI) [Ratio] 21.9 kg/m2 21.9 k g/m2 [facility] ([facility], [facility]) Oxygen saturation in Arterial blood by Pulse oximetry 98 % 98 % [facility] ([facility], [facility])
--- OUTSIDE RECORDS SUMMARY | 2021-09-03 18:19 | CCD ---
Author Author [facility] Organization [facility] Address Unknown Phone Unavailable Care Team Providers Care Cigarette Roller Name Role Phone Stinson, Radha ACCOUNTS RECEIVABLE COORDINATOR Unavailable Unavailable Stinson, Radha ACCOUNTS RECEIVABLE COORDINATOR Unavailable Unavailable Stinson, Radha ACCOUNTS RECEIVABLE COORDINATOR Unavailable Unavailable Stinson, Radha ACCOUNTS RECEIVABLE COORDINATOR Unavailable Unavailable Stinson, Radha ACCOUNTS RECEIVABLE COORDINATOR Unavailable Unavailable Stinson, Radha ACCOUNTS RECEIVABLE COORDINATOR Unavailable Unavailable Stinson, Radha ACCOUNTS RECEIVABLE COORDINATOR Unavailable Unavailable Stinson, Radha ACCOUNTS RECEIVABLE COORDINATOR Unavailable Unavailable Stinson, Radha ACCOUNTS RECEIVABLE COORDINATOR Unavailable Unavailable Stinson, Radha ACCOUNTS RECEIVABLE COORDINATOR Unavailable Unavailable Stinson, Radha ACCOUNTS RECEIVABLE COORDINATOR Unavailable Unavailable Stinson, Radha ACCOUNTS RECEIVABLE COORDINATOR Unavailable Unavailable Stinson, Radha ACCOUNTS RECEIVABLE COORDINATOR Unavailable Unavailable Geeta LOWE JR PA-C Unavailable Unavailable Geeta LOWE JR MIKE PA-C Unavailable Unavailable Geeta LOWE JR MIKE PA-C Unavailable Unavailable Geeta LOWE JR MIKE PA-C Unavailable Unavailable Geeta LOWE JR MIKE PA-C Unavailable Unavailable Geeta LOWE JR MIKE PA-C Unavailable Unavailable Geeta LOWE JR MIKE PA-C Unavailable Unavailable Geeta LOWE JR MIKE PA-C Unavailable Unavailable PICKERAL JR, J [...] Rocio PA Unavailable Unavailable CHRISTOPHER, B KATHY FAUST Unavailable [...] is protected by Article 27-F of the [facility] Public Health law. If you continue you may have access to information: Regarding HIV / AIDS; Provided by facilities licensed or operated by the [facility] Office of Mental Health; or Provided by the [facility] Office for People With Developmental Disabilities. If such information is present, then the following [facility] mandated warning applies: This information has been [...] law may result in a fine or retirement sentence or both. A general authorization for the release of medical or other information is NOT sufficient authorization for further disc losure. Allergies and Adverse Reactions Type Description Substance Reaction Status Data Source(s ) Propensity to adverse reactions NO KNOWN ALLERGIES NO KNOWN ALLERGIES [facility] Family History Family Member Name Family Member Gender Family Member Status Date o f Status Description Data Source(s) Unknown Unknown Problem [facility] ([facility]) mgm,mgf Unknown Unknown Encounters Encounter Providers Location Date Indications Data Source(s ) Outpatient Attender: Radha hwang 09/03/2021 08:55:00 AM EST [facility] ([facility]) Outpatient Attender: KATHY WHITE MD [id number] 02/28/20 12:00:00 AM EDT - 03/05/2021 04:30:13 PM EDT Contracture, left hand [facility] Contracture, left hand Outpatient Attender: MIKE Thao 0 02/18/2021 02:00:00 PM EDT [facility] ([facility] ) Outpatient Attender: RADHA Sue: KATHY WHITE MD [id number] 02/15/2021 12:00:00 AM EDT - 02/16/2021 12:00:00 AM [facility] Outpatient Attender: KATHY WHITE MD [id number] 11/04/19 21 12:00:00 AM EST - 11/18/2020 03:48:48 PM EST Contracture, left [facility] Contracture, left hand Outpatient Attender: Rocio asencio 08/31/2020 12:35:00 PM EST [facility] ([facility], [facility]) Immunizations Vaccine Date Status Description Data Source(s) COVID-19 VACCINE Moderna 08/25/2021 12:00:00 AM EST completed NYSIIS Vaccine Series Complete: YESThis Data wa s Submitted to [facility] [employer]. COVID-19 VACCINE Valeriano 12/18/2020 12:00:00 AM EDT completed NYSIIS Vaccine Series Complete: YESThis Data wa s Submitted to [facility] [employer]. Medications Medication Brand Name Start Date Product [...] MAXIMUM DAILY DOSE = 4 SOLD: 02/17/2021 [facility] 25 mg 02/11/2021 12:00:00 AM EDT [...] type / Coverage type Policy ID Covered democrat ID Covered democrat's relationship to merida Policy Merida Plan Information [id number] [facility] VICENTE GARZA [id number] SP [id number] [employer] Medigap Part B [id number] POMCO [id number] [id number] [employer] WC Workers Compensation [id number] Self UMR [facility] [id number] HU2 [id number] LIBERTY MUTUAL WC W [id number] Empl [id number] REMY CLAIMS ADMIN NCA WC W [id number] Empl [id number] LIBERTY MUTUAL WC W [id number] Empl [id number] RISK MANANGEMENT WC W [id number] Empl [id number] RISK MANANGEMENT WC W [id number] Self [id number] LIBERTY MUTUAL WC W [id number] Empl [id number] UMR [id number] SELF PAY UMR [id number] UMR O [id number] S [id number] [facility] [id number] SP [id number] [employer] PPO O [id number] P [id number] [employer] Commercial [id number] Family Dependent [id number] [employer]OM[employer] [id number] SELF [id number] POM[employer] [id number] 2 [id number] OTHER WORKERS COMPENSATION [id number] SP [id number] [employer] Commercial [id number] Family Dependent [employer]OM[employer] PPO P [id number] P [id number] [employer] RISK MANAGEMENT S [id number] S [id number] SELF PAY P S UMR/[employer]OM[employer] RISK MANAGEMENT [id number] SP [id number] UMR [id number] ANSI-Not a Secondary Insurance [id number] ANSI-Not a Secondary Insurance [id number] ANSI-Not a Secondary Insurance [id number] UMR/[employer]OM[employer] RISK MANAGEMENT [id number] SP [id number] ANSI-Not a Secondary Insurance [id number] ANSI-Not a Secondary Insurance [id number] ANSI-Not a Secondary Insurance [id number] Problems, Conditions, and Diagnoses Code Display Name Description Problem Type Effective Dates Data Source(s) M24.542 Contracture, left hand Contracture, left hand Diagnosi s 02/27/2021 11:12:15 AM [facility] Surgeries/Procedures Procedure Description Date Indications Data Source(s) OFFICE OUTPATIENT VISIT 25 MINUTES 09/03/2021 12:00:00 AM EST [facility] ([facility], [facility]) SURGERY CASE REQUEST OUTSIDE FACILITY ONLY <td>SURGERY CASE REQUEST OUTSIDE FACILITY ONLY</td><td>Routine</td><td>11/04/2020 4:48 PM EST</td><td> Flexion contracture of joint of left hand</td><td></td> 11/04/2020 04:48:40 PM EST Flexion contracture of joint of left hand [facility] Flexion contracture of joint of left gonsalez d Results ID Date Data Source [id number] 09/03/2021 01:34:00 PM EST [facility] ([facility], [facility]) Name Value Range Interpretation Code Description Data Janey rce(s) Supporting Document(s) Glucose, Fasting 93 mg/dL 70-100 [facility] ([facility], [facility]) Blood Urea Nitrogen 13 mg/dL 7-18 [facility] ([facility], [facility]) Creatinine For GFR 0.70 mg/dL 0.55-1.30 [facility] ([facility], [facility]) Glomerular Filtration Rate Laboratory [facility]) <content>Units are mL/min/1.73 m2</content>
<content></content>
<content>Chronic Kidney Disease Staging per NKF:</content>
<content></content>
<content>Stage I & II GFR >=60 Normal to Mildly Decreased</content>
<content>Stage III GFR 30-59 Moderately Decreased</content>
<content>Stage IV GFR 15-29 Severely Decreased</content>
<content>Stage V GFR <15 Very Little GFR Left</content>
<content>ESRD GFR <15 on BONE DRIER</content>
<content></content> Potassium Serum 4.2 meq/L 3.5-5.1 [facility] ([facility], [facility]) Sodium Level 140 meq/L 136-145 [facility] ([facility], [facility]) Carbon Dioxide Level 25 meq/L 21-32 [facility] ([facility]) Chloride Level 106 meq/L 98-107 [facility] ([facility]) Anion Gap 9 meq/L 8-16 [facility] ([facility], [facility]) Ast/Sgot 20 U/L 7-37 [facility] ([facility], [facility]) Calcium Level 9.2 mg/dL 8.5-10.1 [facility] ([facility]) Alt/SGPT 26 U/L 12-78 [facility] ([facility], [facility]) Alkaline Phosphatase 75 U/L 45-117 [facility] ([facility]) Bilirubin,Total 0.7 mg/dL 0.2-1.0 [facility] ([facility], [facility]) Total Protein 7.8 GM/DL 6.4-8.2 [facility] ([facility]) Albumin 4.0 GM/DL 3.2-5.2 [facility] ([facility] Albumin/Globulin Ratio 1.1 1.2-2.2 [facility] ([facility], [facility]) ID Date Data Source [id number] 09/03/2021 01:34:00 PM EST [facility] ([facility], [facility]) Name Value Range Interpretation Code Description Data Janey rce(s) Supporting Document(s) White Blood Count 13.5 10 4.0-10.0 [facility] ([facility] Red Blood Count 4.44 10 4.00-5.40 [facility] ([facility], [facility]) Hemoglobin 14.6 g/dL 12.0-15.5 [facility] ([facility]) Mean Corpuscular Hemoglobin 32.9 pg 27.0-33.0 [facility] ([facility], [facility]) Hematocrit 44.5 % 36.0-47.0 [facility] ([facility], [facility]) Mean Corpuscular Volume 100.2 fl 80.0-96.0 M EDENT ([facility], [facility]) Mean Corpuscular HGB Conc 32.8 g/dL 32.0-36.5 [facility] ([facility], [facility]) Platelet Count, Automated 275 10 150-450 [facility] ([facility], [facility]) Red Cell Distribution Width 12.4 % 11.5-14.5 [facility] ([facility]) Neutrophils % 79.8 % 36.0-66.0 [facility] ([facility] [place] % 8.7 % 2.0-8.0 [facility] ([facility] Lymph % 10.7 % 24.0-44.0 [facility] ([facility] Eos % 0.1 % 0.0-3.0 [facility] ([facility]) Baso % 0.2 % 0.0-1.0 [facility] ([facility] Immature Granulocyte % 0.5 % 0-3.0 [facility] ([facility] Nucleated Red Blood Cell % 0.0 % 0-0 MED ENT ([facility], [facility]) Lymph # 1.5 10 1.5-5.0 [facility] ([facility], [facility]) Neutrophils # 10.8 10 1.5-8.5 [facility] ([facility], [facility]) Eos # 0.0 10 0.0-0.5 [facility] ([facility] Baso # 0.0 10 0.0-0.2 [facility] ([facility] [place] # 1.2 10 0.0-0.8 [facility] ([facility], [facility]) ID Date Data Source [id number] 02/27/2021 11:52:30 AM EDT [facility] Name Value Range Interpretation Code Description Data Janey rce(s) Supporting Document(s) Progress Note [facility] HAYPSr6eOpRDCeVu08/HKFyfINDyd6LrCSgfVMu7STgfREAzX6JnHJL4rA9aWEU4JXdJPtKfBsYeFLM4 [facility] [file] ICAgICAgICAgICAgICAgICAgICAgICAgICAgICAgIC AgICAgICAgICAgICAgICAgICAgICAgICAgICAgICAgICAgICAgICAgICAgICAgICAgICAgICAgICAgIC VgXBGxEK5OPXJlJTVuCSHtXLLnZDByWJKbYUUrLEZjBFTlVZCwCIQaZWOkESYyDMAdEXLzEKQfDHViVM AgICAgICAgICAgICAgICAgICAgICAgICAgICAgICAg XUWbAXYlAVHfCWEeMBVaRB6LWVTsBIHnETQwMAGwUQQoHXDdGNBeIRUpUGRvJXPlGHDzPSXeKJHlNFIp CTFiJGScEAFeDXAlVYImWNWjKJFwWYXzWDYxJAAnOLTeIYTxCRScKVVqOHAcKHLyMRUiANMoVWEdSD1Z ICAgICAgICAgICAgICAgICAgICAgICAgICAgICAgIC AgICAgICAgICAgICAgICAgICAgICAgICAgICAgICAgICAgICAgICAgICAgICAgICAgICAgICAgICAgIC OzEQRkQXEfVM8BMFReJMAaZIFbUDKsQGXqMAFrIFIxWANuPGDnCBGnEXLzICLzQAWnJWEtFETzSQSzBJ AgICAgICAgICAgICAgICAgICAgICAgICAgICAgICAg KLIgWIMrLAKxIIOuQGAfDRCwPR9XMGYqTCCkXEYvCBYlOCYePEZeKORaWLEnMEKiACLoXKKcMSTjLGSg ICAgICAgICAgICAgICAgICAgICAgICAgICAgICAgICAgICAgICAgICAgICAgICAgICAgICAgICAgICAg HX0IBXVsCNWtENSlGQBfPJUuBTOeCTKqCLZxXBXgLC AgICAgICAgICAgICAgICAgICAgICAgICAgICAgICAgICAgICAgICAgICAgICAgICAgICAgICAgICAgIC JsQJHlPMVnMHWwYR7OCZOlQMIlOHEmPFAyNHRhUSNpDJBmTNJrXXTfRHYyWUGxOBUhDYUrXEXyEPAwOE AgICAgICAgICAgICAgICAgICAgICAgICAgICAgICAg YJXkOFDlNTHqWXArLMSbARZnXPUnVG6PSODrRNCbVWRzYJZsXZPkDXLtLBKeLBYeJNAeLFZbTUJjKKUt ICAgICAgICAgICAgICAgICAgICAgICAgICAgICAgICAgICAgICAgICAgICAgICAgICAgICAgICAgICAg KEYvLE4LFTAoLGVwBJJxQLJnDRHwNIAbPGAyYOAfWU AgICAgICAgICAgICAgICAgICAgICAgICAgICAgICAgICAgICAgICAgICAgICAgICAgICAgICAgICAgIC OnTYXxRPRqLMIcADEmLV1KZX41rBXbg8J1NYNuDX0gqfb/Be9ASKzdksFjiDCcQX5AYeJkVO4vjo2PDv GjLI3ecf8XHXjZYcQkY3Z4hWAnPYRlWDRDNlByI19b BPquLg81JPhrTLYtJnNtXSw8Iv4PIrYqI0qiMOClWwU9WWDsQbSgFBhbLO0It6VzpLZkDJj+Qk5SXD4h w8KlHSzaBRIiQS2hrb6TVIlMPhKzG9RxxuB1DOCcXENhKd1LCXXoOGGbfYSiCLYiZIAJXrCxM3AerG24 IDENCj4+BSpbivSoUplFEyTuCYVcg3HkVTk1TA9ZSV MmOFq6tZVeSCSqK7Kms3EeTd24VSDcRzrtQi4cBTyiNyF8vbpjUURiYKIaMZ5jEp4mHLZxDZFmNcN6LO QXPZ5AHSJjKKImhGJsECRnSYXYFK9WWUgtKIO9VZTwcgBbdQWuZUihVI7ICQQgixRdMFrnGEZGTCv+Pg 0JKG0nv8PaGUzjLOXaCG1nrb3DXFnIMgSxM4C9bXZr O9S3IZdoEh0GEKWzMIFsVRphQKRMNFgdXD9VUG5raaS4CC0AwSDgLXYrRTIxoVFhVFi7B69ceIKwWPmr HF3KHGN+Telly+Gh9KLXTtCJEgHQGtPcVnJZERMeEkT8BoQ1GXm5GnN9MiBD14gFnsxvQnQEbtTK5ZUK5q NLCbWJJQDG1RlKJsoB1ilkEuVEQvCXEVDjIvX56bwI OaSAQwVBP1FIFlRs0LKPTmI2UfntZxrJrwzpWtDCWmAWPNUT1PSYrmggNhzZIauQstMG66pKqiQF7ORu 4MJxAxPY7hby6FcOQzDh2THFGnGx4JAFUlPJMkPKUqVHC2UUIeEtLrVVgaRVNxLQWmHQV0LFAtNNKnGU 9SCaCbYNFxFVzrMQreOGTsPZTqgn9ODHBpPMEyUYz1 VVWrQMJpFIXjDHwiWEVvVNLpXII6NNIgFNQvAS0TIoPfJDHnNWEmMvOcVYVgXHRigf0SAVNzIJYtGdD3 UtZnLPMaZXUsSCitRTSqVQC4YcY2FTVpCWZmHW1WVmEbMBMkPAD8RsSkWLBpKPYqwd8TYSLgQRFeRAYz LrZkSLGaKEVnSWigQCEcACV2QBkmHTTlKNEkFK6BQl SaAORsXCY8BsTwRKFdHSSziw5NLUFnWCXmAYq1HQDoWXCfAMYjBMqcIXChRTO4ZyQ9YSEeUPYiDW6SOw FuITByBVg0FcLqOFCpCOPdnz9IMVMmOIIkIsbkCRSyDVMtICWqUFryZYRdCJZ5BPe7PWIkVNNbJH9PSz GjULDaJTurLtTdUQLtOKJzwd7FOKCkBEGaOJZlEPWo KBVdMYWmDFqgPUBzIIJoBXKdRJXnTZCzUM4KBqMeHIJaLnQiHhPgKHStOBWqal9DFEEbGAMtLEX6WMKs GEVyXMYxNOo9koKqxMDrQYz1AI8JY4NhiiTkJfHBBl9Im638FYYmVCKhGn2AK3ieAl8vSKHwGPWJYp2L NMb5R3P3MmbdHHHxSqAeCgB3CLDpWTGjQxdhBILeFs M0NDQ+WJx0SEZdLzPxCVNuOWXdFrT6WvAjB5TeVoOgIBG1KxK3UD1iCXEUFe4+DQpzdGFydHhyZWYNCj EbABPvKFbdLPJHWz2I ID Date Data Source [id number] 02/18/2021 02:14:00 PM EDT [facility] ([facility]) Name Value Range Interpretation Code Description Data Janey rce(s) Supporting Document(s) Cholesterol [Mass/volume] in Serum or Plasma 215 mg/dL 131-200 [facility] ([facility]) Triglyceride [Mass/volume] in Serum or Plasma 258 mg/dL 30-150 [facility] ([facility]) Cholesterol in HDL [Mass/volume] in Serum or Plasma 59 mg/dL 35-60 [facility] ([facility]) Cholesterol in LDL [Mass/volume] in Serum or Plasma by calcu lation 104 CALC 50-159 [facility] ([facility]) ID Date Data Source [id number] 02/18/2021 02:14:00 PM EDT [facility] ([facility]) Name Value Range Interpretation Code Description Data Janey rce(s) Supporting Document(s) Glucose [Mass/volume] in Serum or Plasma 95 mg/dL 74-99 [facility] ([facility]) 100-125 mg/dL PRE-DIABETES/FASTING >126 mg/dL DIABETES/FASTING Creatinine 0.9 mg/dL 0.6-1.3 [facility] Urea nitrogen [Mass/volume] in Serum or Plasma 15 mg/dL 7-18 [facility] ([facility]) Sodium [Moles/volume] in Serum or Plasma 138 meq/L 136-145 [facility] ([facility]) Potassium [Moles/volume] in Serum or Plasma 4.2 meq/L 3.5-5.1 [facility] ([facility]) Chloride [Moles/volume] in Serum or Plasma 102 meq/L 98-107 [facility] ([facility]) Carbon dioxide, total [Moles/volume] in Serum or Plasma 24 meq/L 21 -32 [facility] ([facility]) Calcium [Mass/volume] in Serum or Plasma 9.0 mg/dL 8.5-10.1 [facility] ([facility]) Alkaline phosphatase isoenzyme [Units/volume] in Serum or Pl asma 70 mg/dL 46-116 [facility] ([facility]) Total Bilirubin 0.4 mg/dL 0.2-1.0 [facility] ([facility]) Alanine aminotransferase [Enzymatic activity/volume] in Seru m or Plasma 24 U/L 12-78 [facility] ([facility]) Aspartate aminotransferase [Enzymatic activity/volume] in Serum or Plasma 25 U/L 15-37 [facility] ([facility] ) Proteinase 3 Ab [Units/volume] in Serum 7.8 g/dL 6.4-8.2 [facility] ([facility]) Albumin [Mass/volume] in Serum or Plasma 4.3 g/dL 3.4-5.0 [facility] ([facility]) Glomerular filtration rate/1.73 sq M pre dicted among non-blacks [Volume Rate/Area] in Serum or Plasma by Creatinine-based formula (MDRD) Laboratory test result [facility] A/G Ratio 1.23 CALC 1.00-1.90 [facility] Glomerular filtration rate/1.73 sq M pre dicted among blacks [Volume Rate/Area] in Serum or Plasma by Creatinine-based formula (MDRD) Laboratory test result [facility] ([facility]) <content>CHRONIC KIDNEY DISEASE STAGING PER NKF</content>
<content></content>
<content>STAGE I & II GFR >= 60 NORMAL TO MILDLY DECREASED</content>
<content>STAGE III GFR 30-59 MODERATELY DECREASED</content>
<content>STAGE IV GFR 15-29 SEVERELY DECREASED</content>
<content>STAGE V GFR <15 VERY LITTLE GFR LEFT</content>
<content>ESRD GFR <15 ON BONE DRIER</content>
<content></content> ID Date Data Source [id number] 02/18/2021 02:14:00 PM EDT [facility] Name Value Range Interpretation Code Description Data Janey rce(s) Supporting Document(s) Leukocytes [#/volume] in Blood by Automated count 8.6 x10*3/UL 4.1-10 .9 [facility] ([facility]) Hemoglobin [Mass/volume] in Blood 15.1 g/dL 12.0-18.0 [facility] Erythrocytes [#/volume] in Blood by Automated count 4.52 x10*6/UL 4.2 0-6.30 [facility] Hematocrit [Volume Fraction] of Blood by Automated count 43.1 % 3 7.0-51.0 [facility] ([facility]) MCV 95.2 fL 80.0-97.0 [facility] MCH 33.3 pg 26.0-32.0 [facility] MCHC 35.0 g/dL 31.0-38.0 [facility] Platelets [#/volume] in Blood by Automated count 317 x10*3/UL 140-440 [facility] Erythrocyte distribution width [Ratio] by Automated count 12.8 % 11.6-13.7 [facility] ([facility]) MPV 7.5 FL 7.8-11.0 [facility] Lymph % 27.2 % 10.0-58.5 [facility] Lymph # 2.3 x10*3/UL 0.6-4.1 [facility] ([facility]) Neut % 66.3 % 37.0-92.0 [facility] Mid % 6.5 % 1.7-9.3 [facility] Mid # 0.6 x10*3/UL 0.1-0.6 [facility] ([facility]) Neut # 5.7 x10*3/UL 2.0-7.8 [facility] ([facility]) ID Date Data Source [id number] 02/15/2021 11:51:04 AM EDT [facility] Name Value Range Interpretation Code Description Data Janey rce(s) Supporting Document(s) Progress Note [facility] RXQDFo1wSxYIPgNn72/BGZpbUDPtw4YpEKuvSFi1STwpMKGfU2MmZMP8cJ6uPUO6KJfTHvAfAuQeDZA1 lbm [file] ICAgICAgICAgICAgICAgICAgICAgICAgICAgICAgICAgICAgICAgICAgICAgICAgICAgICAgICAgICAg ICAgICAgICAgICAgICAgICAgICAgICAgICAgICAgDQ ogICAgICAgICAgICAgICAgICAgICAgICAgICAgICAgICAgICAgICAgICAgICAgICAgICAgICAgICAgIC AgICAgICAgICAgICAgICAgICAgICAgICAgICAgICAgICAgICAgICAgDQogICAgICAgICAgICAgICAgIC AgICAgICAgICAgICAgICAgICAgICAgICAgICAgICAg ICAgICAgICAgICAgICAgICAgICAgICAgICAgICAgICAgICAgICAgICAgICAgICAgICAgDQogICAgICAg ICAgICAgICAgICAgICAgICAgICAgICAgICAgICAgICAgICAgICAgICAgICAgICAgICAgICAgICAgICAg ICAgICAgICAgICAgICAgICAgICAgICAgICAgICAgIC AgDQogICAgICAgICAgICAgICAgICAgICAgICAgICAgICAgICAgICAgICAgICAgICAgICAgICAgICAgIC AgICAgICAgICAgICAgICAgICAgICAgICAgICAgICAgICAgICAgICAgICAgDQogICAgICAgICAgICAgIC AgICAgICAgICAgICAgICAgICAgICAgICAgICAgICAg ICAgICAgICAgICAgICAgICAgICAgICAgICAgICAgICAgICAgICAgICAgICAgICAgICAgICAgDQogICAg ICAgICAgICAgICAgICAgICAgICAgICAgICAgICAgICAgICAgICAgICAgICAgICAgICAgICAgICAgICAg ICAgICAgICAgICAgICAgICAgICAgICAgICAgICAgIC AgICAgDQogICAgICAgICAgICAgICAgICAgICAgICAgICAgICAgICAgICAgICAgICAgICAgICAgICAgIC AgICAgICAgICAgICAgICAgICAgICAgICAgICAgICAgICAgICAgICAgICAgICAgDQogICAgICAgICAgIC AgICAgICAgICAgICAgICAgICAgICAgICAgICAgICAg ICAgICAgICAgICAgICAgICAgICAgICAgICAgICAgICAgICAgICAgICAgICAgICAgICAgICAgICAgDQog ICAgICAgICAgICAgICAgICAgICAgICAgICAgICAgICAgICAgICAgICAgICAgICAgICAgICAgICAgICAg ICAgICAgICAgICAgICAgICAgICAgICAgICAgICAgIC BpCMBaRISzHJs8A6icGBDwRHJrMG5dXTz4Kx4+IArYKdGgNWQ7zbUhcQ7IQJ1xm8CdNOfzJGOxh9TsCD e8XR5ITAYoPVbjVT4EVEltpw9YUQAaNRMkaXHFq4fcHnXcVEB0MYDeFhczWD8OFTYmO8mbmtPnSPCrLE ZEXJ0HTwCmR5ZiyV14KRWHQq6+DQplbmRvYmoNCjE5 IFBem1SpATw1QY7FUPVuVyazm5PbNeQnQDIWZRsaFR0LAJR5DEBwKUMdYb1SECRrJ409veHxNL4JZw8V OlIsDM2yxi7JUxXaQIScQneVSze8SCuaZE9KnWAuOQrIdz5lauFrvtLUt9KesrYjpSXUQDJimVVglQ1z NRisKAXnZMueTd7xQHDoQZ6fGE3vYRJvJZElZsEgXQ MEBX6TUDZkULNidFGpGZYmBXYQHA3ERSahFIP9IGNuwdCxxRWcKNecBF2FXBUhfdGyQWmbGCOFUWy+Pg 5RDI5dg8BcSRxnPWGcMY2oom2ABYmFBvVfX3P1cCQkP6J9QLlfMv7TJFAeRUJkSMtjMVOOVLspYY1WQK 5sfqH8YC4DrEDiIYUpIIKeiSQrOVj1F06vbIQuAVxd IK0OSVJ+Telly+Wm4SZMPfNSDpLVWaKhLqARWTZiXkG8KqU7UAz4HdJ7SgMR90pWrddsNlZVthYS4JWY0z BSOjINFRFN1LmJKnaA3bkrHqDZPlOKWHHvIvC31ueJZbBQYsPAI4YWIkSk2FZHPyV0EqbvLwgXaseiQw CMOqLLPWNU8GGVgoklZngDQovBkkBB80vAcmUP7KRs 6KLlNwEV3itv8MwGSpWw1DWJKnHl9XCNQoLJBxAYFlRHQ2AXLwCqRxLTblKIObCFUhVYC3IAPwFOLsFB 1ZQdZgYSFuNLqoAeQgMEKdSUTteu8TDOBrPKKxIMw9WOYyNZPjWCUbMNfeCKDxOQHmIED8QPSwXBLrQC 7LJeNxJYCtBAZxWDyzVZVfMAIjld1AMZRgNMWqSiBo GNChWHAmCEIrBJkdCFDvADOdPbJaYQVdTUXcJH0TUsJeUDKcZHA8APPiQNYbIOFctm9HNLGcSXJnFhXo MpQjQKCjATYyECllBTZxNGK4GQd4BMOtXBIvYI2LDpZrIJKtXUA5VSStHAXqEYKocg6RUZOkAYQpYGv2 DdBhLPWaYOSlBLomPCYsGMJ9PdC4MACwTOUyCL4OLn TfHQEkDLA4PFIgBJZuMRVqtz7RHNRuADTyThw7AxXaSEJyRHRpOLdlRUJkXIL8BLYtWCAaDRPcFH6EJh WuDHTnDGhySRqaHFJuNYWezx9BEZMuYWKyGkM6DAPhVGGmDOMjFDmxBTEjQRF1IWr8KILnLJMcKL1RTi EqPXZgLLibDBuzPSTkXYOqvh4PGKYlRXCkNUVwTVGx SBXfBSPpNMt0deQseUPtSOh7YH1WS0XgqyUcBzHZDo5La737KVBgGTOeDr0MY7jaHz4yWNZfVBEMBi6R KYg8KDHmBXNlRcJdEVa6BISnJXM2FcT1YbHhLKLzNGAhTkq+SNbjOuLsA6D0BFYqRNsfAeIhLfVaXcab NFNcZnG4HxOsDJ3lYWDAVu7+MWfamMZnnMowQFBAFwL6DNW5GBhkFKUUAu6B ID Date Data Source [id number] 02/15/2021 11:51:00 AM EDT [facility] Name Value Range Interpretation Code Description Data Janey rce(s) Supporting Document(s) SARS-CoV-2 RNA 2019 nCoV Real-Time RT-PCR: NOT DETECTED [facility] This lab was ordered by [facility] and reported by [facility]. ID Date Data Source [id number] 02/16/2021 12:59:00 PM EDT [facility] Name Value Range Interpretation Code Description Data Janey rce(s) Supporting Document(s) Specimen source [Identifier] of Unspecified specimen [facility] SARS-CoV-2 RNA 2019 nCoV Real-Time RT-PCR: NOT DETECTED [facility] Assay Performed [facility] Patients first test for condition [facility] Patient employed in healthcare setting [facility] Patient has symptoms related to [facility] When did you start to experience these symptoms [Date and time] [Phen X] [facility] Patient was hospitalized because of this condition [facility] patient was admitted to ICU for [facility] Patient resides in a congregate care setting [facility] status [facility] ID Date Data Source [id number] 11/04/2020 04:46:41 PM EST [facility] Name Value Range Interpretation Code Description Data Janey rce(s) Supporting Document(s) Progress Note [facility] DFWRYw0zAzXLMtBt75/KXGabACJqm1XgTBlbZBd4PHtkYQQlK1TbXVZ3rL6dFPK1PHpCWiDuYpNpEnYq lbm GnZkkKDoQnGCLmLrtMYnQjCVllOfwynKLhQH1BbPC5KDOdQ10pPVQcXEFhP4UrSNB1AST+At9WRJKidQ AwJL9QCjgF7G8Qsnl0OU0QIm5IjnGIgTM6KlWaedwq13NdK2zggqOdnC4mpZpxSL7ZVd0Xo87kKVoz4O diBjNWdmM/TH4CkOHelIQQKoK/+8urLB5aEXB3f/oz wRC0Puda/54dF5Qw3gv1C/JIqqCr9ZrrCxdgIc5l6Snh2r2bbUSPkUFlaNQA9fR2sqZZ3lCD1Fq+/Hm6 Vx9xu0PKN4q/gna4LeYB+VEk33/6itl1WV517i8wttOkZcdqgmK/hDLG7TH2vsDj3yBgsqXybIJtqpJu G5IYs7XMcEt+8gGiU58f+AKyxvpu4adVL0v9F0qyYZ TOwl3KYQDdPJ5bqaBORJ5xkxNUpp1iM/ZfJW7S7+nNvD+2QT7c0O5QfbTqTykIdi+pemIRuitFHn1Ihj IiLf3IRR3p87V9gErRJJujXdr9AOibwZvC/3SKoLE1dCQ91m3SPirTwWI7ZOby6/W1aX3tUdMRA+6+Uv scrg3g7WW5kw1XTb8FiQb19FJeuplJrgIXR1oBVNmi np9dnh+Zg459BiBVbl2c/POodyVeHV4+P78UZ++B5U1yuXyNMAH0H08arCsLPeIBZddAQ3990fbb09xX vX/2ajqObQb/izajMYucoHyhlInU9KrwQ1Xgf08hMttocfBMwNBWub2J8GaeaNVWx7iT6pCwQbVrIMYt FIndupADIl8q0BlRxqDPzssaJuxaxpyR5YwY2rzTcG i6G/FaKJTrKq8Ji/bCaekV7A9zA5Jc9FlG6jw2uvSlNC5K20wJ7v6TFbmtiJg2pBTN20UoJ0gcw+Sarah [file] AgICAgICAgICAgICAgICAgICAgICAgICAgICAgICAg ICAgICAgICAgICAgICAgICAgICAgICAgICAgICAgICAgICAgICAgICAgICAgICAgICAgICAgICAgICAg ICANCiAgICAgICAgICAgICAgICAgICAgICAgICAgICAgICAgICAgICAgICAgICAgICAgICAgICAgICAg ICAgICAgICAgICAgICAgICAgICAgICAgICAgICAgIC AgICAgICAgICAgICANCiAgICAgICAgICAgICAgICAgICAgICAgICAgICAgICAgICAgICAgICAgICAgIC AgICAgICAgICAgICAgICAgICAgICAgICAgICAgICAgICAgICAgICAgICAgICAgICAgICAgICANCiAgIC AgICAgICAgICAgICAgICAgICAgICAgICAgICAgICAg ICAgICAgICAgICAgICAgICAgICAgICAgICAgICAgICAgICAgICAgICAgICAgICAgICAgICAgICAgICAg ICAgICANCiAgICAgICAgICAgICAgICAgICAgICAgICAgICAgICAgICAgICAgICAgICAgICAgICAgICAg ICAgICAgICAgICAgICAgICAgICAgICAgICAgICAgIC AgICAgICAgICAgICAgICANCiAgICAgICAgICAgICAgICAgICAgICAgICAgICAgICAgICAgICAgICAgIC AgICAgICAgICAgICAgICAgICAgICAgICAgICAgICAgICAgICAgICAgICAgICAgICAgICAgICAgICANCi AgICAgICAgICAgICAgICAgICAgICAgICAgICAgICAg ICAgICAgICAgICAgICAgICAgICAgICAgICAgICAgICAgICAgICAgICAgICAgICAgICAgICAgICAgICAg ICAgICAgICANCiAgICAgICAgICAgICAgICAgICAgICAgICAgICAgICAgICAgICAgICAgICAgICAgICAg ICAgICAgICAgICAgICAgICAgICAgICAgICAgICAgIC AgICAgICAgICAgICAgICAgICANCiAgICAgICAgICAgICAgICAgICAgICAgICAgICAgICAgICAgICAgIC AgICAgICAgICAgICAgICAgICAgICAgICAgICAgICAgICAgICAgICAgICAgICAgICAgICAgICAgICAgIC ANCiAgICAgICAgICAgICAgICAgICAgICAgICAgICAg ICAgICAgICAgICAgICAgICAgICAgICAgICAgICAgICAgICAgICAgICAgICAgICAgICAgICAgICAgICAg ICAgICAgICAgICANCjw/aGPcK6gvbXMiolC9B2gtKo9GMd3WWW5gv6ApBNRmFVvgekUhXydSTtWjCCXn MbpCKif0IMgsKE7FmJBtY1BjN5MrIYtuIQ2CDBErUL UiuEDpMVTvIXGsUeT9ITPyGVckJR5BwEYnATptAZEqGMAcQV1RDMBjM125evHgDW4OKw2GDkPhOL1yyk 9RFkZdVMKwCjnNCek2PZsmHE8BtCSupOPtQrDsDJVTOrEuT7sjc7KqCeZiECZEDNuuBX7Lm5DjeDWrOQ o+Er4UQE9na4LpVMpmHeSmLT5vab6GOOzRRvMlI0Bt pNdnOJXuk0sdTEMuZA1qfGPcTHO8ZJkebwYLp6V5rIEsPP8PJSC1TUQhMW6cTVXlQFH9LhK7UTUTRK0F UBMdZQTgrZVhLAEdJZBQPD6IMAciPRZ3LJEaymXulPSbDXuhWP1GEWLmwqHeTcFqQMVITYl+Tf3YKT1t o5MaGDqeSFVzLX3hhj1UGHuPNuMjA6E7qHDlH9C3ZE fnFn0QUFKwXHXcHlNyEJYITAitDE2DYI3ygeQ2MY0SbBDwZSLqUWSasKJaGVz3I70akRIoHSloQA3ZSQ A+Telly+Vd5FNHVzWXKkFCQoQlDfMGNYHdNhG0BfF9CJl4BtN7UrNU02bMlgxdCzFVxgHZ4GZJ0lIERsSW GGSP7PfKPtaI4tqwAgDkFwATZTWvNvP60mrOEkVGPz CLFeLCEaPf3JCFIhU8MsyiNblUoyhjKvYEEuQFAXEF3NVKyybpEpgVHbaKpwMU74jVrxTQ3ADa6MKdKo OE6udb2HdTNnYg2QFOKiOG0JBMDaOVLbJTCjFGQ6PWNjWwKjEShfCNLsSRSkKBL5SUMtSWLlOU8FTxRc QSIkRDj3PPJeRQZxYVHivq7AJFThYHImOUVtQNIkMC RzXNGkWWfrHTZuJKIkLEN6ZOOfTMGiKT4XJyExIQZzUCGpGrMqDLXoGEAfge7PHFXjVKQvZnUyFLTnZG RxNNEbAIbuFRFaWIA7Bnk8UWPkMESvNO6DEyLoNKToEBF6RQUyUFNoBYLhgs7PDXDeGEGrBZM3HADcSI TfOOAtUSrrKJFpIXA7HpW2YKEiMKYpHK4DErDoZGQv TAM1HmCmZAGaEJMtqf6YVKNbRCIdDtYkJfYqXSIzJTPnMTxcUPPpSGT4RpEpVEOrMFAaPI6LZxXlTFJx REo5BinfRNDrVDHiru3DCKSyNIYmOef8NzVbPLLqVRQvAQsyMYHvACE3FDD1UTUoNNEuDE2PKpUcEWJw AAyvAfIbJAHwVEEcmo1NDQGfKLUgLFGwMsUnLMRaOE CcHFmrCVQaJWC7Jmo0MERyBPIjGJ9RZmHhFMFgQTs1DbrsLXAtZLEonl1XJZRbFUNrZWs0WDOmUBIhZV OuXWtcDKVsENGnQSBrEAOpWGUzYT4OJcZcYABnHqS7PXJeSHMcPCHswv6LKRHfGVUmNZVnPFPnAWYuPS VeVMx9qgZlcKKtJGl0HP6UC4MzqdCeVgIOTm8Xn005 TZU8VJAzRh4JJ5qwOj6aUWYxGAOORh3KQXu7QhFqMHK9ZHRiVdQbNZUdSje0EBSnFuK1CRajYOQlZjD+ UNbjWILfYIX1VZXwYZA0PTFlMGX3EDCwIssnUMTtX5EbGH1yIBLUCu6+DQpzdGFydHhyZWYNCjIxODgy LSxaNKIDDt1K ID Date Data Source [id number] 08/31/2020 12:00:00 AM EST [facility] Name Value Range Interpretation Code Description Data Janey rce(s) Supporting Document(s) [facility] 2 [facility] This lab was ordered by [facility] and reported by [facility]. Procedure Social History Code Duration Value Status Description Data Source(s ) Alcohol intake 02/27/2021 12:00:00 AM EDT Current drinker of al cohol (finding) completed Current drinker of alcohol (finding) [facility] Tobacco use and exposure 02/27/2021 12:00:00 AM EDT Never used co mpleted Never used [facility] Smoking 02/27/2021 12:00:00 AM EDT Current every day smoker co mpleted Current every day smoker [facility] Alcohol intake 11/04/2020 12:00:00 AM EST Current drinker of al cohol (finding) completed Current drinker of alcohol (finding) [facility] Vital Signs ID Date Data Source UNK Name Value Range Interpretation Code Description Data Source(s) Body mass index (BMI) [Ratio] 21.9 kg/m2 21.9 k g/m2 [facility] ([facility]) Systolic blood pressure 153 mm[Hg] 153 mm[Hg] M EDENT ([facility]) Diastolic blood pressure 89 mm[Hg] 89 mm[Hg] [facility] Heart rate 102 /min 102 /min [facility] ([facility]) Respiratory rate 14 /min 14 /min [facility] ( [facility]) Oxygen saturation in Arterial blood by Pulse oximetry 99 % 99 % [facility] ([facility]) Body temperature 99.1 [degF] 99.1 [degF] [facility] ([facility]) Body weight 120.00 [lb_av] 120.00 [lb_av] MEDEN T ([facility], [facility]) Body height 62 [in_i] 62 [in_i] [facility] ([facility]) 5'2" Body mass index (BMI) [Ratio] 22.9 kg/m2 22.9 k g/m2 [facility] ([facility]) Systolic blood pressure 116 mm[Hg] 116 mm[Hg] M EDENT ([facility]) Diastolic blood pressure 76 mm[Hg] 76 mm[Hg] [facility] ([facility]) Heart rate 65 /min 65 /min [facility] ([facility]) Body height 61.25 [in_i] 61.25 [in_i] [facility] ([facility]) 5'1.25" Body weight 122.00 [lb_av] 122.00 [lb_av] [facility] T ([facility]) Oxygen saturation in Arterial blood by Pulse oximetry 99 % 99 % [facility]) Air Systolic blood pressure 142 mm[Hg] 142 mm[Hg] M EDENT ([facility], [facility]) Body weight 120.00 [lb_av] 120.00 [lb_av] [facility] T ([facility], [facility]) Body height 62 [in_i] 62 [in_i] [facility]) 5'2" Body mass index (BMI) [Ratio] 21.9 kg/m2 21.9 k g/m2 [facility] ([facility], [facility]) Diastolic blood pressure 78 mm[Hg] 78 mm[Hg] [facility] ([facility], [facility]) Heart rate 67 /min 67 /min [facility] ([facility], [facility]) Respiratory rate 16 /min 16 /min [facility] ( [facility], [facility]) Oxygen saturation in Arterial blood by Pulse oximetry 98 % 98 % [facility] ([facility], [facility]) Body temperature 98.0 [degF] 98.0 [degF] [facility] ([facility], [facility])
[2021-09-03] MEDS ORDERED: PIPERACILLIN/TAZOBACTAM SOD 3.375 GM in D5W MINI-BAG PLUS 50 ML IV ONE (18:40)
[2021-09-03] MEDS ORDERED: NS 1,000 ML IV ONE (18:40)
[2021-09-03] MEDS ORDERED: KETOROLAC 30 MG/ML 1ML VIAL IV ONE (18:40)
[2021-09-03] MEDS ORDERED: HOME MED LIST COMPLETE! XX SCH (19:25)
[2021-09-03] MEDS ORDERED: propofoL 200 MG/20 ML VIAL As Ordered ONE (20:11)
[2021-09-03] MEDS ORDERED: fentaNYL 100 MCG/2 ML INJECTION (J3010) As Ordered ONE ×2 (20:11→21:15)
[2021-09-03] MEDS ORDERED: MIDAZOLAM INJ 2MG/2ML VIAL (J2250 PER 1MG) As Ordered ONE (20:11)
[2021-09-03] MEDS ORDERED: LIDOCAINE 2% 100MG/5ML SDV (FOR ANES.) As Ordered ONE (20:11)
[2021-09-03 20:12] LABS: RSV AMPLIFICATION NEGATIVE (NEGATIVE)
[2021-09-03] MEDS ORDERED: BUPIVACAINE/EPIN 0.25% 30 ML VIAL As Ordered ONE (20:35)
[2021-09-03] MEDS ORDERED: dexameTHASONE 4 MG/ML 1ML VIAL (J1100 PER 1MG) As Ordered ONE (20:52)
[2021-09-03] MEDS ORDERED: ACETAMINOPHEN 1000MG 100ML IV BTL (OFIRMEV) (J0131 PER 10MG) As Ordered ONE (21:02)
[2021-09-03] MEDS ORDERED: PHENYLephrine 500MCG 5ML (100MCG/ML) SYRINGE As Ordered ONE (21:05)
[2021-09-03] MEDS ORDERED: ONDANSETRON 4MG/2ML VIAL As Ordered ONE (21:12)
[2021-09-03] MEDS ORDERED: METOCLOPRAMIDE INJ 10MG/2ML VIAL (J2765 PER 1) As Ordered ONE (21:12)
[2021-09-03] MEDS ORDERED: MORPHINE 2 MG/ML 1ML VIAL (J2270) IV PRN ×2 (21:35)
[2021-09-03] MEDS ORDERED: LR 1,000 ML IV SCH (21:55)
[2021-09-03] MEDS ORDERED: fentaNYL 100 MCG/2 ML INJECTION (J3010) IV PRN (21:55)
[2021-09-03] MEDS ORDERED: METOCLOPRAMIDE INJ 10MG/2ML VIAL (J2765 PER 1) IV PRN (21:55)
[2021-09-03] MEDS ORDERED: ONDANSETRON 4MG/2ML VIAL IV PRN (21:55)
[2021-09-03] MEDS: oxyCODONE 5MG TAB PO PRN ×2 (22:01→22:34)
[2021-09-03] MEDS: LR 1,000 ML IV SCH (22:02)
[2021-09-03 22:41] VITALS: BP 94/48
[2021-09-03 23:11] VITALS: BP 96/48
[2021-09-03] MEDS ORDERED: LR 500 ML IV ONE (23:20)
[2021-09-03 23:41] VITALS: BP 94/50
[2021-09-04 00:41] VITALS: BP 94/50
[2021-09-04 01:41] VITALS: BP 96/48
[2021-09-04] MEDS: PIPERACILLIN/TAZOBACTAM SOD 3.375 GM in D5W MINI-BAG PLUS 50 ML IV SCH ×2 (02:11→07:58)
[2021-09-04] MEDS: KETOROLAC 30 MG/ML 1ML VIAL IV SCH ×2 (02:11→07:58)
[2021-09-04 02:41] VITALS: BP 98/50
[2021-09-04 03:41] VITALS: BP 96/52
[2021-09-04] MEDS: LR 1,000 ML IV SCH (05:21)
[2021-09-04 10:00] VITALS: BP 98/50
--- OUTSIDE RECORDS SUMMARY | 2021-09-04 13:55 | CCD | Continuity of Care Document ---
Author Author Vilma ESPOSITO CASHIERS SUPERVISOR Organization Unknown Address [address] [place] [address] [place] [address] Phone [phone] Care Team Providers Care Sourcing Specialist Name Role Phone Doug Petty María AUTM [phone] Foster Alberto MD AUTM [phone] Problems Description No Information Available Social History Type Date Description Comments Sex Unknown ETOH Use Occasionally consumes alcohol Tobacco Use Start: Unknown Patient is a current smoker, smo kes every day 15 a day Smoking Status Reviewed: 09/03/21 Patient is a current smoker, smokes every day 15 a day Allergies and adverse reactions Description No Known Drug Allergies Medications Active Medications SIG Qnty Indications Ordering Provide r Date Atenolol 25mg Tablets Unknown Paxil 10mg Tablets 1 by mo [facility] every day Unknown Immunizations Description No Information Available Vital Signs Date Vital Result Comment 09/03/2021 12:54pm BP Systolic 153 mmHg BP Diastolic 89 mmHg Heart Rate 102 /min Respiratory Rate 14 /min O2 % BldC Oximetry 99 % Body Temperature 99.1 F Weight 120.00 lb Height 62 inches 5'2" BMI (Body Mass Index) 21.9 kg/m2 Pain Level 5 08/31/2020 3:48pm BP Systolic 142 mmHg BP Diastolic 78 mmHg Heart Rate 67 /min Respiratory Rate 16 /min O2 % BldC Oximetry 98 % Body Temperature 98.0 F Weight 120.00 lb Height 62 inches 5'2" BMI (Body Mass Index) 21.9 kg/m2 Pain Level 2 Results Description No Information Available Procedures Description No Information Available Medical Devices Description No Information Available Encounters Description No Information Available Assessments Date Code Description Provider 09/03/2021 R10.31 Right lower quadrant pain Radha Esposito NP Plan of Treatment 09/03/2021 - Radha Esposito NP* R10.31 Right lower quadrant pain* New Labs: * CBC With Differential, Ordered: 09/03/21 * Comprehensive Metabolic Profil, Ordered: 09/03/21 * Comments:* physical exam concerning for appendicitisSTAT labs were obtainedSTAT CT abdomen w/o contrast ordered to r/o appendicitis, patient will go NOW (1330) & wait in waiting room for the STAT read of the imaging. Functional Status Description No Information Available Mental Status Description No Information Available Referrals Description No Information Available
--- OUTSIDE RECORDS SUMMARY | 2021-09-04 13:55 | CCD ---
Continuity of Care Document (CCD) Created on: 09/03/2021 Vilma Gonzales External Reference #: [id number] : [id number] Sex: Female Author Author Vilma ESPOSITO ENVIRONMENTAL SAMPLER Organization Unknown Address [address] [place] [address] [place] [address] Phone [phone] Care Team Providers Care Roughener Name Role Phone Doug Petty María AUTM [phone] Foster Alberto MD AUTM [phone] Problems Description No Information Available Social History [...] Unknown Paxil 10mg Tablets 1 by mo [facility] every day Unknown Immunizations Description No Information [...]
--- OUTSIDE RECORDS SUMMARY | 2021-09-04 13:55 | CCD | Continuity of Care Document ---
Author Author Vilma ESPOSITO WOR[employer] REN[employer]F AND RESTAURANT OWNER Organization Unknown Address [address] [place] [address] [place] [address] Phone [phone] Care Team Providers Care Ecologist Technician Name Role Phone Doug Petty María AUTM [phone] Foster Alberto MD AUTM [phone] Problems Description No Information Available Social History [...] Unknown Paxil 10mg Tablets 1 by mo [facility] every day Unknown Immunizations Description [...]
--- OUTSIDE RECORDS SUMMARY | 2021-09-04 13:55 | CCD | Continuity of Care Document ---
Author Author Vilma ESPOSITO FISH FILLETER Organization Unknown Address [address] [place] [address] Phone [phone] Care Team Providers Care Billing Department Supervisor Name Role Phone Doug Petty María AUTM [phone] Foster Alberto MD AUTM [phone] Problems Description No Information Available Social History [...] Unknown Paxil 10mg Tablets 1 by mo [facility] every day Unknown Immunizations Description No Information [...] Index) 21.9 kg/m2 Pain Level 2 Results Test Acquired Date Facility Test Result H/L Range Note CBC With Differential 09/03/2021 [facility] [address] [place] [address] [phone] White Blood Count 13.5 10 High 4.0-10.0 Red Blood Count 4.44 10 Normal 4.00-5.40 Hemoglobin 14.6 g/dL Normal 12.0-15.5 Hematocrit 44.5 % Normal 36.0-47.0 Mean Corpuscular Volume 100.2 fl High 80.0-96.0 Mean Corpuscular Hemoglobin 32.9 pg Normal 27.0-33.0 Mean Corpuscular HGB Conc 32.8 g/dL Normal 32.0-36.5 Red Cell Distribution Width 12.4 % Normal 11.5-14.5 Platelet Count, Automated 275 10 Normal 150-450 Neutrophils % 79.8 % High 36.0-66.0 Lymph % 10.7 % Low 24.0-44.0 [place] % 8.7 % High 2.0-8.0 Eos % 0.1 % Normal 0.0-3.0 Baso % 0.2 % Normal 0.0-1.0 Immature Granulocyte % 0.5 % Normal 0-3.0 Nucleated Red Blood Cell % 0.0 % Normal 0-0 Neutrophils # 10.8 10 High 1.5-8.5 Lymph # 1.5 10 Normal 1.5-5.0 Worth # 1.2 10 High 0.0-0.8 Eos # 0.0 10 Normal 0.0-0.5 Baso # 0.0 10 Normal 0.0-0.2 Comprehensive Metabolic Profil 09/03/[address] [address] [phone] Glucose, Fasting 93 mg/dL Normal 70-100 Blood Urea Nitrogen 13 mg/dL Normal 7-18 Creatinine For GFR 0.70 mg/dL Normal 0.55-1.30 Glomerular Filtration Rate > 60.0 Normal >51 1 Sodium Level 140 mEq/L Normal 136-145 Potassium Serum 4.2 mEq/L Normal 3.5-5.1 Chloride Level 106 mEq/L Normal 98-107 Carbon Dioxide Level 25 mEq/L Normal 21-32 Anion Gap 9 mEq/L Normal 8-16 Calcium Level 9.2 mg/dL Normal 8.5-10.1 Ast/Sgot 20 U/L Normal 7-37 Alt/SGPT 26 U/L Normal 12-78 Alkaline Phosphatase 75 U/L Normal 45-117 Bilirubin,Total 0.7 mg/dL Normal 0.2-1.0 Total Protein 7.8 GM/DL Normal 6.4-8.2 Albumin 4.0 GM/DL Normal 3.2-5.2 Albumin/Globulin Ratio 1.1 Low 1.2-2.2 1 Units are mL/min/1.73 m2 Chronic Kidney Disease Staging per NKF: Stage I & II GFR >=60 Normal to Mildly Decreased Stage III GFR 30-59 Moderately Decreased Stage IV GFR 15-29 Severely Decreased Stage V GFR <15 Very Little GFR Left ESRD GFR <15 on LOAD OUT PERSON Procedures Date Code Description Status 09/03/2021 58175 Office/Outpatient Established Mo d MDM 30-39 Min Completed Medical Devices Description No Information Available Encounters Type Date Location Provider Dx Diagnosis Office Visit 09/03/2021 9:55a Main Office Radha Esposito NP R10. 31 Right lower quadrant pain Assessments Date Code Description Provider 09/03/2021 R10.31 Right lower quadrant pain Radha Esposito NP Plan of Treatment No Information Available Functional Status Description No Information Available Mental Status Description No Information Available Referrals Description No Information Available
--- OUTSIDE RECORDS SUMMARY | 2021-09-04 13:55 | CCD | Continuity of Care Document ---
Author Author Vilma ESPOSITO LARYNGOLOGIST Organization Unknown Address [address] [place] [address] Phone [phone] Care Team Providers Care Restuarant Crew Worker Name Role Phone Doug Petty María AUTM [phone] Foster Alberto MD AUTM [phone] Problems Description No Information Available Social History [...] Unknown Paxil 10mg Tablets 1 by mo [facility] every day Unknown Immunizations Description No [...] H/L Range Note CBC With Differential 09/03/2021 [facility] [address] [place] [address] [phone] White Blood Count 13.5 10 High 4.0-10.0 [...] 36.0-66.0 Lymph % 10.7 % Low 24.0-44.0 [place] % 8.7 % High 2.0-8.0 Eos % 0.1 % Normal 0.0-3.0 Baso % 0.2 % Normal 0.0-1.0 Immature Granulocyte % 0.5 % Normal 0-3.0 Nucleated Red Blood Cell % 0.0 % Normal 0-0 Neutrophils # 10.8 10 High 1.5-8.5 Lymph # 1.5 10 Normal 1.5-5.0 [place] # 1.2 10 High 0.0-0.8 Eos # 0.0 10 Normal 0.0-0.5 Baso # 0.0 10 Normal 0.0-0.2 Comprehensive Metabolic Profil 09/03/[address] [address] [phone] Glucose, Fasting 93 mg/dL Normal 70-100 Blood [...] Little GFR Left ESRD GFR <15 on REVENUE STAMPER Procedures Date Code Description Status 09/03/2021 21430 Office/Outpatient Established Mo d MDM 30-39 Min [...]
--- OUTSIDE RECORDS SUMMARY | 2021-09-04 13:56 | CCD ---
Author Author [facility] Organization [facility] Address Unknown Phone Unavailable Care Team Providers Care Cage Maker Name Role Phone Stinson, Radha CLINICAL ANALYST Unavailable Unavailable Stinson, Radha CLINICAL ANALYST Unavailable Unavailable Stinson, Radha CLINICAL ANALYST Unavailable Unavailable Stinson, Radha CLINICAL ANALYST Unavailable Unavailable Stinson, Radha CLINICAL ANALYST Unavailable Unavailable Stinson, Rahda CLINICAL ANALYST Unavailable Unavailable Stinson, Radha CLINICAL ANALYST Unavailable Unavailable Stinson, Radha CLINICAL ANALYST Unavailable Unavailable Stinson, Radha CLINICAL ANALYST Unavailable Unavailable Stinson, Radha CLINICAL ANALYST Unavailable Unavailable Stinson, Radha CLINICAL ANALYST Unavailable Unavailable Stinson, Radha CLINICAL ANALYST Unavailable Unavailable Stinson, Radha CLINICAL ANALYST Unavailable Unavailable Geeta LOWE JR PA-C Unavailable [...] Unavailable CHRISTOPHER, B KATHY FAUST Unavailable Unavailable CHRITSOPHER, B KATHY FAUST Unavailable Unavailable CHRISTOPHER, B [...] Reddy CHAVEZ MD Unavailable Unavailable CHRISTOPHER, Reddy CHVAEZ MD Unavailable Unavailable CHRISTOPHER, Reddy CHAVEZ MD [...] is protected by Article 27-F of the [facility] Public Health law. If you continue you may have access to information: Regarding HIV / AIDS; Provided by facilities licensed or operated by the [facility] Office of Mental Health; or Provided by the [facility] Office for People With Developmental Disabilities. If such information is present, then the following [facility] mandated warning applies: This information has been [...] law may result in a fine or chcf sentence or both. A general authorization for the release of medical or other information is NOT sufficient authorization for further disc losure. Allergies and Adverse Reactions Type Description Substance Reaction Status Data Source(s ) Propensity to adverse reactions NO KNOWN ALLERGIES NO KNOWN ALLERGIES [facility] Family History Family Member Name Family Member Gender Family Member Status Date o f Status Description Data Source(s) Unknown Unknown Problem [facility] ([facility]) mgm,mgf Unknown Unknown Encounters Encounter Providers Location Date Indications Data Source(s ) Outpatient Attender: Radha hwang 09/03/2021 08:55:00 AM EST [facility] ([facility]) Outpatient Attender: KATHY WHITE MD [id number] 02/28/20 12:00:00 AM EDT - 03/05/2021 04:30:13 PM EDT Contracture, left hand [facility] Contracture, left hand Outpatient Attender: MIKE Thao 0 02/18/2021 02:00:00 PM EDT [facility] ([facility] ) Outpatient Attender: RAHDA Sue: KATHY WIHTE MD [id number] 02/15/2021 12:00:00 AM EDT - 02/16/2021 12:00:00 AM [facility] Outpatient Attender: KATHY WHITE MD [id number] 11/04/19 21 12:00:00 AM EST - 11/18/2020 03:48:48 PM EST Contracture, left [facility] Contracture, left hand Outpatient Attender: Rocio asencio 08/31/2020 12:35:00 PM EST [facility] ([facility]) Immunizations Vaccine Date Status Description Data Source(s) COVID-19 VACCINE Moderna 08/25/2021 12:00:00 AM EST completed [facility] Vaccine Series Complete: YESThis Data wa s Submitted to [facility] Via MED[facility]ENT. COVID-19 VACCINE Valeriano 12/18/2020 12:00:00 AM EDT completed [facility] Vaccine Series Complete: YESThis Data wa s Submitted to [facility] Via MEDOVENT. Medications Medication Brand Name Start Date Product [...] relationship to merida Policy Merida Plan Information [id number] [facility] VICENTE GARZA [id number] SP [id number] [employer] Medigap Part B [id number] [employer] [id number] HU2 [id number] [employer] WC Workers Compensation [id number] Self UMR [facility] [id number] HU2 [id number] [employer] M[employer] WC W [id number] Empl [id number] REMY CLAIMS ADMIN NCA WC W [id number] Empl [id number] [employer] WC W [id number] Empl [id number] RISK MANANGEMENT WC W [id number] Empl [id number] RISK MANANGEMENT WC W [id number] Self [id number] LIBERTY MUTUAL WC W [id number] Empl [id number] UMR [id number] SELF PAY UMR [id number] UMR O [id number] S [id number] [facility] [id number] SP [id number] [employer] PPO O [id number] P [id number] [employer] Commercial [id number] Family Dependent [id number] [employer] [id number] SELF [id number] [employer] [id number] 2 [id number] OTHER WORKERS COMPENSATION [id number] SP [id number] OTHER1 [employer] [id number] Family Dependent [employer] PPO P [id number] P [id number] [employer] RISK MANAGEMENT S [id number] S [id number] SELF PAY P S UMR/[employer] RISK MANAGEMENT [id number] SP [id number] UMR [id number] ANSI-Not a Secondary Insurance [id number] ANSI-Not a Secondary Insurance [id number] ANSI-Not a Secondary Insurance [id number] UMR/[employer] RISK MANAGEMENT [id number] SP [id number] ANSI-Not a Secondary Insurance [id number] ANSI-Not a Secondary Insurance [id number] ANSI-Not a Secondary Insurance [id number] Problems, Conditions, and Diagnoses Code Display Name Description Problem Type Effective Dates Data Source(s) M24.542 Contracture, left hand Contracture, left hand Diagnosi s 02/27/2021 11:12:15 AM [facility] Surgeries/Procedures Procedure Description Date Indications Data Source(s) OFFICE OUTPATIENT VISIT 25 MINUTES 09/03/2021 12:00:00 AM EST [facility] ([facility]) SURGERY CASE REQUEST OUTSIDE FACILITY ONLY <td>SURGERY CASE REQUEST OUTSIDE FACILITY ONLY</td><td>Routine</td><td>11/04/2020 4:48 PM EST</td><td> Flexion contracture of joint of left hand</td><td></td> 11/04/2020 04:48:40 PM EST Flexion contracture of joint of left hand [facility] Flexion contracture of joint of left gonsalez d Results ID Date Data Source [id number] 09/03/2021 01:34:00 PM EST [facility] ([facility]) Name Value Range Interpretation Code Description Data Janey rce(s) Supporting Document(s) Glucose, Fasting 93 mg/dL 70-100 [facility] ([facility]) Blood Urea Nitrogen 13 mg/dL 7-18 [facility] ([facility]) Creatinine For GFR 0.70 mg/dL 0.55-1.30 [facility] ([facility]) Glomerular Filtration Rate Laboratory [facility] <content>Units are mL/min/1.73 m2</content>
<content></content>
<content>Chronic Kidney Disease Staging per NKF:</content>
<content></content>
<content>Stage I & II GFR >=60 Normal to Mildly Decreased</content>
<content>Stage III GFR 30-59 Moderately Decreased</content>
<content>Stage IV GFR 15-29 Severely Decreased</content>
<content>Stage V GFR <15 Very Little GFR Left</content>
<content>ESRD GFR <15 on SUSTAINABLE DEVELOPMENT POLICY ANALYST</content>
<content></content> Sodium Level 140 meq/L 136-145 [facility] ([facility]) Potassium Serum 4.2 meq/L 3.5-5.1 [facility] ([facility]) Chloride Level 106 meq/L 98-107 [facility] ([facility]) Carbon Dioxide Level 25 meq/L 21-32 [facility] ([facility]) Anion Gap 9 meq/L 8-16 [facility] ([facility], [facility]) Alt/SGPT 26 U/L 12-78 [facility] ([facility]) Ast/Sgot 20 U/L 7-37 [facility] ([facility]) Calcium Level 9.2 mg/dL 8.5-10.1 [facility] ([facility]) Bilirubin,Total 0.7 mg/dL 0.2-1.0 [facility] ([facility]) Alkaline Phosphatase 75 U/L 45-117 [facility] ([facility]) Total Protein 7.8 GM/DL 6.4-8.2 [facility] ([facility]) Albumin 4.0 GM/DL 3.2-5.2 [facility] ([facility] Albumin/Globulin Ratio 1.1 1.2-2.2 [facility] ([facility]) ID Date Data Source [id number] 09/03/2021 01:34:00 PM EST [facility] ([facility]) Name Value Range Interpretation Code Description Data Janey rce(s) Supporting Document(s) White Blood Count 13.5 10 4.0-10.0 [facility] ([facility] Red Blood Count 4.44 10 4.00-5.40 [facility] ([facility]) Hemoglobin 14.6 g/dL 12.0-15.5 [facility] ([facility] Hematocrit 44.5 % 36.0-47.0 [facility] ([facility]) Mean Corpuscular Volume 100.2 fl 80.0-96.0 M EDENT ([facility]) Mean Corpuscular Hemoglobin 32.9 pg 27.0-33.0 [facility] ([facility]) Mean Corpuscular HGB Conc 32.8 g/dL 32.0-36.5 [facility] ([facility]) Platelet Count, Automated 275 10 150-450 [facility] ([facility]) Red Cell Distribution Width 12.4 % 11.5-14.5 [facility] ([facility]) Neutrophils % 79.8 % 36.0-66.0 [facility] ([facility] Lymph % 10.7 % 24.0-44.0 [facility] ([facility] Eos % 0.1 % 0.0-3.0 [facility] ([facility]) [place] % 8.7 % 2.0-8.0 [facility] ([facility] Baso % 0.2 % 0.0-1.0 [facility] ([facility]) Immature Granulocyte % 0.5 % 0-3.0 [facility] ([facility]) Nucleated Red Blood Cell % 0.0 % 0-0 MED ENT ([facility]) Lymph # 1.5 10 1.5-5.0 [facility] ([facility] Neutrophils # 10.8 10 1.5-8.5 [facility] ([facility] Eos # 0.0 10 0.0-0.5 [facility] ([facility] [place] # 1.2 10 0.0-0.8 [facility] ([facility] Baso # 0.0 10 0.0-0.2 [facility] ([facility]) ID Date Data Source [id number] 02/27/2021 11:52:30 AM EDT [facility] Name Value Range Interpretation Code Description Data Janey rce(s) Supporting Document(s) Progress Note [facility] OIUAWu5wFfJXWjWt85/NTOruGJVzc5QmTSxfHBx6YFoyVWRiI0AmSHZ2cC2nRBK4ONfOJoIcWuZnPFO7 [facility] [file] ICAgICAgICAgICAgICAgICAgICAgICAgICAgICAgIC AgICAgICAgICAgICAgICAgICAgICAgICAgICAgICAgICAgICAgICAgICAgICAgICAgICAgICAgICAgIC FvERAfLR1ZFLVrSQOuEXSsAWPhYHUuFZUkFQNrNZXbNVFpUHYnISHnYMShDDRqREEfCCHhDMUrTFCpUM AgICAgICAgICAgICAgICAgICAgICAgICAgICAgICAg YCPzEUNgTTPfQBXuHHGdBJ0UUFFzENYvQYTvUABoOCGeVFHcTGPnZHMhPQJuTBZwPBQkPIPuHFIpYENz ZNNmTUBnEWZbITWeVDRlBTFvQNAdIGTgPAIoMFXjYGMyLFNdDSEsRCVyXAEoHULfMXEkBFFnRJKjJX3Z ICAgICAgICAgICAgICAgICAgICAgICAgICAgICAgIC AgICAgICAgICAgICAgICAgICAgICAgICAgICAgICAgICAgICAgICAgICAgICAgICAgICAgICAgICAgIC WnADNyUMYdDU9UZKEqPLSnJBOnVSKfGLGkOATqAXRlFWOoBFPtSNEoIBRdGSAaHPItIQRfZSUwWYHsSS AgICAgICAgICAgICAgICAgICAgICAgICAgICAgICAg AKZhWFUhKZKrZMYeOISpBJNoMX7YSMKyGUEwIHZqTRGvDYBnHLPfNNAiFGJoFUWbOAHyOAHaAPQpMYOo ICAgICAgICAgICAgICAgICAgICAgICAgICAgICAgICAgICAgICAgICAgICAgICAgICAgICAgICAgICAg BM8LKFRtYJNvOMUhGHGjMYEpHAWwGRVhYODyMZGnFU AgICAgICAgICAgICAgICAgICAgICAgICAgICAgICAgICAgICAgICAgICAgICAgICAgICAgICAgICAgIC TtKRLqKXPzNEVhGE0ZUPDiPNPyBVEoWXJvXWKwPLHdTBXsHHOyOHBmLBZhQSLgYFJyZGNcZWHeZDRvGL AgICAgICAgICAgICAgICAgICAgICAgICAgICAgICAg NKZpWIKdAQHrOZUwNVZhCBNlPUXlYW2QJHKeUUMuRAGiHXAmRDMoCWMlFIYlPKGvMXDzPJGkSGBnDWTq ICAgICAgICAgICAgICAgICAgICAgICAgICAgICAgICAgICAgICAgICAgICAgICAgICAgICAgICAgICAg PRWwYQ4PPDZxFZDsDPTbMBXeGMEoUGIlXRZbIWMuZG AgICAgICAgICAgICAgICAgICAgICAgICAgICAgICAgICAgICAgICAgICAgICAgICAgICAgICAgICAgIC IrYYJjVAKbSHXwEDAjWZ9XRQ22yICom5A3MFNkOL5brzp/Vd2WKXlcimOdpCVzKU9SJgVjFB4gbo7JOa ZnJW4mcj1ZYWiUOuGaH0P5hONlJCZaPQVJQdMlP76l EWxhPq92QGxzWOPiCiKvQQo3Mn6PLwJrN5lgAYUyLiW0AENqNzAhPZmjRO7Vf8ScqYZzUFn+Kh2FDZ8m z7LhWCqaLBHpZE9ofr0CSQfZJgOjC3FrwfH3LJPiMAQkIm1RJFSvVPGknFPpCSXzGEYPDiMtV9LdqX19 IDENCj4+PCbmkiCySfwPKkXsAUXwq7FwNIq6BV2XSZ RwGDf9aYLaGHShW5Xbm6TgBs67CVMeLarrNb7oYByoGsD1mygzBZLzOMYkQU6lNu4tZYHjEJMeZyA6FY WIEI1GRXGqOIVsxVUrUSXbUQFSYR7IMGlrCVP3FHWoplImyGSmCCgzUS2GIVZemtUmSUioOJMLMGb+Pg 1UQP4ir4RgDBcmATIkGF0jhj4SYPnWJaSiE6F2qYKw C6D0ANplWu8FGSZvUPDhYSqsRRPQBUowCE1YQF2vtzH8LA4XcAUcTUErEWBdtUDmYQw3T40uaYSfLYpl SC9UORY+Telly+Iy5TRTBuWSObFOXnWmJoAYMNWzFzR8EzN1PTv1PwB9CeCS09oNyjxcLvBTqoZH4TXQ2n OUCoKYMDMO7ZbVUneN3jxfWiQZGkHKAUXhLpI81hnL ZdONNvFPL8YQMxMx1METVcB4WmnhVswHqbisQnQKUtWREBEA6FISykjdQsaBWyhPccZD71pTnpTO1VHu 1HBsClLW0jkl1WsOCtXv3KMNNdVm1VOOAhBJYjIZIaBVY8SGRgUiJcPQxqZHZvMWPlCBS3HZQjNJCaUS 0ESeInDMPfSAgmYGtcZOQqDUJeug0UYUPbPHZxJIs7 KCGpOUCdIGUbKKaoRWUlKAUrHYX1ALQzUMDmSF7DViQzLGWxYMOuGuQhAEDmJWPgnj4JTLCzFSOlTmR0 BgSmZYWrODMeIWqqPFOwZGK5VzZ8JKUkFAHsPX9XXoEpYZJbPEA3VbHcQNNkIIWowh2MLBGwGQEkAEVa LqDxBQHvEGYdWBfiVRSvPLT1ZXhtIEBwQDCkMT7RZl RuWTUiRCY5GmUkTHCqDQVsbd0UZGHxTUEuPHd1BMAiFCVkVCBzGImiILDcYCJ9ZyI4MCAnCRRuTP7UZf CwHJEvMJj1RkBbRTFsWIOyue8TGOQhPWLpHbqtFFOuGBUiRADtBYikLXLmMYF5MXj7INQmPSEmSR5BGt QyRMLkYQorXlXzYJNyLBKsyd0QWJHhAQRiWLMvERFx QKWtZUWxJLrdXAJvVMQiRZGgNUKnWHJuJG0SYzIoEGWwRsWpRaZwYMXhUUPgau0DOKEaUKCcEVQ2ELOo BCTvJWFdXEq8tnHgjVRyQAp5KD2AA9EmpqRhYxNATd7Pa077KRYsZONsHb0NW3jtCt5jBUEmGKEZNz1U YQo4K3F7EednRDDtTkTfMtR2QAPlQQJzJtrcQUMlOc M0NDQ+AGf4NINlEkEzNSCvMNNrJgD7GtKhY4TgDcCoOWS7ZnG0XD1yRJMVKb9+DQpzdGFydHhyZWYNCj NoSNRqDXjnXWZHRp5H ID Date Data Source [id number] 02/18/2021 02:14:00 PM EDT [facility] ([facility]) Name Value Range Interpretation Code Description Data Janey rce(s) Supporting Document(s) Cholesterol [Mass/volume] in Serum or Plasma 215 mg/dL 131-200 [facility] ([facility]) Triglyceride [Mass/volume] in Serum or Plasma 258 mg/dL 30-150 [facility] ([facility]) Cholesterol in HDL [Mass/volume] in Serum or Plasma 59 mg/dL 35-60 [facility] ([facility]) Cholesterol in LDL [Mass/volume] in Serum or Plasma by calcu lation 104 CALC 50-159 [facility] ([facility]) ID Date Data Source [id number] 02/18/2021 02:14:00 PM EDT [facility] ([facility]) Name Value Range Interpretation Code Description Data Janey rce(s) Supporting Document(s) Glucose [Mass/volume] in Serum or Plasma 95 mg/dL 74-99 [facility] ([facility]) 100-125 mg/dL PRE-DIABETES/FASTING >126 mg/dL DIABETES/FASTING Creatinine 0.9 mg/dL 0.6-1.3 [facility] Urea nitrogen [Mass/volume] in Serum or Plasma 15 mg/dL 7-18 [facility] ([facility]) Sodium [Moles/volume] in Serum or Plasma 138 meq/L 136-145 [facility] ([facility]) Potassium [Moles/volume] in Serum or Plasma 4.2 meq/L 3.5-5.1 [facility] ([facility]) Chloride [Moles/volume] in Serum or Plasma 102 meq/L 98-107 [facility] ([facility]) Carbon dioxide, total [Moles/volume] in Serum or Plasma 24 meq/L 21 -32 [facility] ([facility]) Calcium [Mass/volume] in Serum or Plasma 9.0 mg/dL 8.5-10.1 [facility] ([facility]) Alkaline phosphatase isoenzyme [Units/volume] in Serum or Pl asma 70 mg/dL 46-116 [facility] ([facility]) Total Bilirubin 0.4 mg/dL 0.2-1.0 [facility] ([facility]) Alanine aminotransferase [Enzymatic activity/volume] in Seru m or Plasma 24 U/L 12-78 [facility] ([facility]) Aspartate aminotransferase [Enzymatic activity/volume] in Serum or Plasma 25 U/L 15-37 [facility] ([facility] ) Proteinase 3 Ab [Units/volume] in Serum 7.8 g/dL 6.4-8.2 [facility] ([facility]) Albumin [Mass/volume] in Serum or Plasma 4.3 g/dL 3.4-5.0 [facility] ([facility]) Glomerular filtration rate/1.73 sq M pre dicted among non-blacks [Volume Rate/Area] in Serum or Plasma by Creatinine-based formula (MDRD) Laboratory test result [facility] A/G Ratio 1.23 CALC 1.00-1.90 [facility]) Glomerular filtration rate/1.73 sq M pre dicted among blacks [Volume Rate/Area] in Serum or Plasma by Creatinine-based formula (MDRD) Laboratory test result [facility] ([facility]) <content>CHRONIC KIDNEY DISEASE STAGING PER NKF</content>
<content></content>
<content>STAGE I & II GFR >= 60 NORMAL TO MILDLY DECREASED</content>
<content>STAGE III GFR 30-59 MODERATELY DECREASED</content>
<content>STAGE IV GFR 15-29 SEVERELY DECREASED</content>
<content>STAGE V GFR <15 VERY LITTLE GFR LEFT</content>
<content>ESRD GFR <15 ON SUSTAINABLE DEVELOPMENT POLICY ANALYST</content>
<content></content> ID Date Data Source [id number] 02/18/2021 02:14:00 PM EDT [facility]) Name Value Range Interpretation Code Description Data Janey rce(s) Supporting Document(s) Leukocytes [#/volume] in Blood by Automated count 8.6 x10*3/UL 4.1-10 .9 [facility] ([facility]) Hemoglobin [Mass/volume] in Blood 15.1 g/dL 12.0-18.0 [facility] Erythrocytes [#/volume] in Blood by Automated count 4.52 x10*6/UL 4.2 0-6.30 [facility] Hematocrit [Volume Fraction] of Blood by Automated count 43.1 % 3 7.0-51.0 [facility] ([facility]) MCV 95.2 fL 80.0-97.0 [facility] MCH 33.3 pg 26.0-32.0 [facility]) MCHC 35.0 g/dL 31.0-38.0 [facility]) Platelets [#/volume] in Blood by Automated count 317 x10*3/UL 140-440 [facility] Erythrocyte distribution width [Ratio] by Automated count 12.8 % 11.6-13.7 [facility] ([facility]) MPV 7.5 FL 7.8-11.0 [facility] Lymph % 27.2 % 10.0-58.5 [facility] Lymph # 2.3 x10*3/UL 0.6-4.1 [facility] ([facility]) Neut % 66.3 % 37.0-92.0 [facility] Mid % 6.5 % 1.7-9.3 [facility] Mid # 0.6 x10*3/UL 0.1-0.6 [facility] ([facility]) Neut # 5.7 x10*3/UL 2.0-7.8 [facility] ([facility]) ID Date Data Source [id number] 02/15/2021 11:51:04 AM EDT [facility] Name Value Range Interpretation Code Description Data Janey rce(s) Supporting Document(s) Progress Note [facility] DDBYLh7vOgPUPdBd40/OSXxrTJRxj5CiGSkfMSi4GAxmXASdN9ClVND7dD4zWCI5NMmAUgObCoPjOVK9 lbm [file] ICAgICAgICAgICAgICAgICAgICAgICAgICAgICAgICAgICAgICAgICAgICAgICAgICAgICAgICAgICAg ICAgICAgICAgICAgICAgICAgICAgICAgICAgICAgDQ ogICAgICAgICAgICAgICAgICAgICAgICAgICAgICAgICAgICAgICAgICAgICAgICAgICAgICAgICAgIC AgICAgICAgICAgICAgICAgICAgICAgICAgICAgICAgICAgICAgICAgDQogICAgICAgICAgICAgICAgIC AgICAgICAgICAgICAgICAgICAgICAgICAgICAgICAg ICAgICAgICAgICAgICAgICAgICAgICAgICAgICAgICAgICAgICAgICAgICAgICAgICAgDQogICAgICAg ICAgICAgICAgICAgICAgICAgICAgICAgICAgICAgICAgICAgICAgICAgICAgICAgICAgICAgICAgICAg ICAgICAgICAgICAgICAgICAgICAgICAgICAgICAgIC AgDQogICAgICAgICAgICAgICAgICAgICAgICAgICAgICAgICAgICAgICAgICAgICAgICAgICAgICAgIC AgICAgICAgICAgICAgICAgICAgICAgICAgICAgICAgICAgICAgICAgICAgDQogICAgICAgICAgICAgIC AgICAgICAgICAgICAgICAgICAgICAgICAgICAgICAg ICAgICAgICAgICAgICAgICAgICAgICAgICAgICAgICAgICAgICAgICAgICAgICAgICAgICAgDQogICAg ICAgICAgICAgICAgICAgICAgICAgICAgICAgICAgICAgICAgICAgICAgICAgICAgICAgICAgICAgICAg ICAgICAgICAgICAgICAgICAgICAgICAgICAgICAgIC AgICAgDQogICAgICAgICAgICAgICAgICAgICAgICAgICAgICAgICAgICAgICAgICAgICAgICAgICAgIC AgICAgICAgICAgICAgICAgICAgICAgICAgICAgICAgICAgICAgICAgICAgICAgDQogICAgICAgICAgIC AgICAgICAgICAgICAgICAgICAgICAgICAgICAgICAg ICAgICAgICAgICAgICAgICAgICAgICAgICAgICAgICAgICAgICAgICAgICAgICAgICAgICAgICAgDQog ICAgICAgICAgICAgICAgICAgICAgICAgICAgICAgICAgICAgICAgICAgICAgICAgICAgICAgICAgICAg ICAgICAgICAgICAgICAgICAgICAgICAgICAgICAgIC XaFMXcHXGnIEe7D0bwGCGnHEPfNA2bVZc3Li5+EAxPDaHlDLT1wxKwcD6FFV2zv9ZeOVtyYMNwt5TjDD c4RB5VUFBbTLhgLQ0DZXvllh3CDLJjVVKcyBRKx6viEkShDDC2GVRaUpmzAG6WDJFsX1nbxcTvJXTrFQ DLMP6TBmQsT6CgiR40SLVHDt0+DQplbmRvYmoNCjE5 TTCul1TyVRr1GR7SFNLeNfnpc2IbFyDqQTQAYYcbYN8BIWS8YDJgVIHdKc4FZATwH709ynNcYE0UCg6K LzMcOP8dfl7BGbImGGEmFxjAZpd1TZubWZ2ZcVWfTNaTmk8wurYjcyOKp1ZovkUikWTRGQMseVNyuP6w IFbgVCZrPJuwPa1oOOFeZQ8rWS2nZUIfUUCmSsRlCV FYUH3NRIIaERBbrQLqCSHzDHEFWF8GOUruLVN7XHIlwaBijTHrXHrsGK5RDKUvtzYaXTffIGQWOZr+Pg 2SPA8ka4BuCBtxPMDsQE0hmw2YOTmHWkQbU1C2rYNkG9W7TVgbVy3ZQBQcBTOqPZvbUUYYRXqgMA7RKH 5uhwR7RG0DpVCeRANcFASgvJGjNHd7S45hmIJbPKnp AT4IDNC+Telly+Rj6XAKKoKSMpFWXdXoJsDDFCTbIpR5QkC2FIt3DbR7TmKX40nCconqSePXdrLZ7VWG0o CJAaCHYGNU0DoGLxxI7vbpYgNGTbNDHWTwCdP53fgHTtVNHgFHK9MDAzJb4QQZCtT8RqhmVhqKhxbxZj KBFeLSPSLP8ZDUsxfxUokMSpaSceWU52sTibVJ3YNy 6ZKcXpUU4erw1XiOZqGi0MNKMkMs4RULDsOZZaTCKlKNN4ZAPdXsBrEWolWXYhTTObBXM8GBRiHJViNV 4ALoJnVXWmOHeiAsMsAHXfNLAffb3MRLIsTUHfZIk9OWHvGNYdYXSsWKmaSPHhXJJpPSZ9QQIoUHUoSZ 0EToSgFLHwCAIcVLbbZDOwVUNemr5VVKSlCXOeLjEt VAZmHYLxBTMyXOmlVZNgDYKpGsGfFXQsBZQmFN3XVkKmLGRfUBV1GGHjAQAwEOMlxr3QUEEyDOLmMaXu LdZqDNPqZYNhPVuzHUFmAKD3NAd9DTGlNXScRC6ELbTbLYYcQYJ0WWQpDXSdLGPoow0VYGQzDSYrWZx3 DqQkZSAqHNUpDSizEZZtVSB7KbL8QJAtEFBdPF5MGb EpTDPaKUW0TJJlRAXhQJPnku2QHPZeODLjAbz6TfDaIEMxWNAeRKotYSLeBCN1MGBjZJAlFTGiRW6SEz NxGBTdXBkiYEruBPFuGOQmhk2YWPAcYYNsRiO3REVrEKMfGHTqEDazGJLuXYE6JGw6PLBeIXUwUL9DFu WiVRXbJRelZVcbDMRrIHJksq4PYAXfBARkSTSmMSKm FALfXQEyPOs1vvLwmCBdAHp3UV3QN3SqjoMdQzLPKv2Fo818CKAmYDNtBh7CR3rvDh1pKZYkIRAYQg7R PZp0SEMiELAwBsYpZNd5KKMtGTU5RxE2CeLtWRNjWTSzLff+XIarBeBbS0R9DZWkIPikQwCaUiBaCrva IYDpYkN3FeTsBY0uQMKFLe9+FPpejGUmmTqbPEDRZiB4KZH4MBcaKIFTRj2Z ID Date Data Source [id number] 02/15/2021 11:51:00 AM EDT [facility] Name Value Range Interpretation Code Description Data Janey rce(s) Supporting Document(s) SARS-CoV-2 RNA 2019 nCoV Real-Time RT-PCR: NOT DETECTED [facility] This lab was ordered by [facility] and reported by [facility]. ID Date Data Source [id number] 02/16/2021 12:59:00 PM EDT [facility] Name Value Range Interpretation Code Description Data Janey rce(s) Supporting Document(s) Specimen source [Identifier] of Unspecified specimen [facility] SARS-CoV-2 RNA 2019 nCoV Real-Time RT-PCR: NOT DETECTED [facility] Assay Performed [facility] Patients first test for condition [facility] Patient employed in healthcare setting [facility] Patient has symptoms related to [facility] When did you start to experience these symptoms [Date and time] [Phen X] [facility] Patient was hospitalized because of this condition [facility] patient was admitted to ICU for [facility] Patient resides in a congregate care setting [facility] status [facility] ID Date Data Source [id number] 11/04/2020 04:46:41 PM EST [facility] Name Value Range Interpretation Code Description Data Janey rce(s) Supporting Document(s) Progress Note [facility] HMNSGt3jXjERLxJl14/HGGyrBCDvd6AcUAlfWUa0JGikEQGcJ6IbGZD2iW7mBFU5XXiSHeAzZiEyNeNd lbm TgYjlTUaPwFZOeXbvVUvOsWDswJvogwNQrJA6FmXL3LVOiM16wREDeBEDzA2MtUOH1NHW+Fk6SHTNmhE JcKI5PAniI2V8Dpyw7UV3BYp0FysWFoOI0HqEhsufo41XnT8eqbuPjeY2kiHhzFG6RLl7Wq09sDKub9L diBjNWdmM/IQ7LmCWczYEOPhI/+0nqRQ0yRYH2f/oz xFB5Hitv/64dW3Ps1vr1P/ZEfiIz4FypXluyIv0h2Tpb7k2fsTMNpYKbyOND5vY6rxVO6uAN3Mh+/Hm6 Zv3mn0JBU9n/fwo8AoYL+VEk33/9amh4RU610w8bclLeOlhhclF/xBMS1FC0mrMz3jNubeMnjGWtwdLe W7ADb2FDlEu+2zZwM76l+YFejxvd1hoWG6k6W0tmQG OSwg1TTRCmGQ0nyqNPGG9fdgJDrl6hD/ToZX0U1+nNvD+7FI5f6H0WupLvPkmAni+otyGWsffUGv3Gij JwHj7MRU4t27J3gZbQQRazOkd3KFtpyQsO/4CFnGO6qZM28i4VGcuJmAL1TCnb9/V9bN3pJvCNW+6+Uv exks3e9KE2ax0OXo7XfIf37VRlhwpKmdZBQ6iNEWbt np9dnh+Km769RjKFas1b/POodyVeHV4+P78UZ++K2E4xiJrWGJG2D64niUePIzTIYskBC1695ebi97kE vX/2ajqObQb/zlqdPRsxtSbjwLoM9TyaR0Eaw54pAbblsgMSgHBQki1Z0EmjgNAOd3dO1xSbWmLcZPZf MHwxprEGVi7k1CoAlhFLkubgVckjxckX2BwZ4jjYbI i6G/SeUVDvVx5Mr/oKkshC7V9oY1Ie4VlL6ds6ngZlAD2X73hD3h2PZhgzpDf6aVRT11KhB7kmm+Sarah [file] AgICAgICAgICAgICAgICAgICAgICAgICAgICAgICAg ICAgICAgICAgICAgICAgICAgICAgICAgICAgICAgICAgICAgICAgICAgICAgICAgICAgICAgICAgICAg ICANCiAgICAgICAgICAgICAgICAgICAgICAgICAgICAgICAgICAgICAgICAgICAgICAgICAgICAgICAg ICAgICAgICAgICAgICAgICAgICAgICAgICAgICAgIC AgICAgICAgICAgICANCiAgICAgICAgICAgICAgICAgICAgICAgICAgICAgICAgICAgICAgICAgICAgIC AgICAgICAgICAgICAgICAgICAgICAgICAgICAgICAgICAgICAgICAgICAgICAgICAgICAgICANCiAgIC AgICAgICAgICAgICAgICAgICAgICAgICAgICAgICAg ICAgICAgICAgICAgICAgICAgICAgICAgICAgICAgICAgICAgICAgICAgICAgICAgICAgICAgICAgICAg ICAgICANCiAgICAgICAgICAgICAgICAgICAgICAgICAgICAgICAgICAgICAgICAgICAgICAgICAgICAg ICAgICAgICAgICAgICAgICAgICAgICAgICAgICAgIC AgICAgICAgICAgICAgICANCiAgICAgICAgICAgICAgICAgICAgICAgICAgICAgICAgICAgICAgICAgIC AgICAgICAgICAgICAgICAgICAgICAgICAgICAgICAgICAgICAgICAgICAgICAgICAgICAgICAgICANCi AgICAgICAgICAgICAgICAgICAgICAgICAgICAgICAg ICAgICAgICAgICAgICAgICAgICAgICAgICAgICAgICAgICAgICAgICAgICAgICAgICAgICAgICAgICAg ICAgICAgICANCiAgICAgICAgICAgICAgICAgICAgICAgICAgICAgICAgICAgICAgICAgICAgICAgICAg ICAgICAgICAgICAgICAgICAgICAgICAgICAgICAgIC AgICAgICAgICAgICAgICAgICANCiAgICAgICAgICAgICAgICAgICAgICAgICAgICAgICAgICAgICAgIC AgICAgICAgICAgICAgICAgICAgICAgICAgICAgICAgICAgICAgICAgICAgICAgICAgICAgICAgICAgIC ANCiAgICAgICAgICAgICAgICAgICAgICAgICAgICAg ICAgICAgICAgICAgICAgICAgICAgICAgICAgICAgICAgICAgICAgICAgICAgICAgICAgICAgICAgICAg ICAgICAgICAgICANCjw/rHMeA4hbdVEuysH6U8xwVg0HBn1UNC2gy7XkRPFtUDlnryFlPgcCZsMiSLIz LcnUJbd6LKdtBJ5YiWWgI7DcW7VuWQrgWV4VBWMwBX QjkVBuKZVeLKMkExQ1LLCeOEpmEX5KcZZoPSogDVMbRLBwWF4ONHVvG197oxFwED7HVf9JGzWoWE0iul 9GXsPsSFUgIkmBNdi0HKuuYK1NjXOivBWkLlHfYKBQOcVpP0mpq3UyYiQsVIWRUGkpDH4Hy9SrsCVnUI o+Qc2OQZ1ow8HzHMjoVsGjBV3sbi8MPBeYTzWcY1Yb iYgsLVZrw9coMIMvWB4lwZFvSOM5UZsvedRKq5Y4hORqVC3YWPE9XCOpUX4eKWTtSAY1CvY4IVLPNM6X WVOiRVJvvYUyTVUyCGKZAT6OWQgpIYO7RJNknbJwbPKtWUdiDP1DKLKyhgEdWbYzBGKULIm+Fo9FSX2c g4HfMBxwBDAjRP9eme2KCKwWBkSaT9T8nBKaT4D7XC mpQu4KYJZiQOEtDuZwHSHYLZbwNF8SHP2rgiJ2NW0OzIWmQTPiWGTmgFTfJHu7C44ifBPnYOavWH5ZFQ A+Telly+Ga6NJZHxVPCaHAJoKfFhSKTYIaLpA1GjP7PMq2RgR8WtTX61iMcpiqYjXUbmII6NPF1gQLRjXI OYBA7QsKZzhU1xmcYjYzVgJPHDMbJfB05qsJTuWSZc VAPwEEAnTv9AEDGxD3GshtLmhKtxgpCsZHPoHXNDMZ9RNVfjhpOncPFxxTqiSD58rVpoUB2PLv1ALnKp NQ6vlp4OlNIeYd0QJKNvYV9TAYKsROBnGFQdSVX5JUOyWnQiHOupXNXiJHEiTLK5KGPvVSMjNS3SGkKs VXQvUJm1VQZnHFNfITUtrq1EGNLaTVKkYHImHOQgME NzARUdATqsQSAzRFApTEM7VVDoCMGmLJ1EXdFsVKQsETNeEvCkEBDyPUNmly1ZWNVqMFOiXtBjGTTcWN BfJYNsLDkjCOCgYBO2Ouf9JPVgFCYwWP5PKdPbVVElQKI8AJZvFJZvRPDtah8UXHNsUQHiPLZ5NSRfUR NgSGXcEZihFYRdWBL2EjB3QJWcAMZjLQ9XBwHlCKTr TGD8YoEvMLMdGNYpqy0MDCJhDDTcQbDoLvBiGVMyZGTxXLrbMLPsEUD3RwVlSCOlEHFoGJ5XRnBhCGXq NTv9GdjaKXMiABBbra1PZVUxBOSvHwh9NxWnTQEzKPRiQZxaUHFcVUZ4IYL7LLLqHQAlBE6FEfYbVJMy FFufZnXfXZKcWDBhgz5CZPMyXCXkLKApEmXiDCQhPV YqNCemFOGhSYE4Hle3NRShRWOqHR6UMqUoHTKxIYd5EscrPKDeKIHzvj7XAGDsPPOpJLp5MRIsZBDeTH ZuXGlsURDhEJNoDKDmZTCbZUCjIR1XGeApHPWwKgI8BZJiPBAtXWQfwt5OIPNjWKBbLIFxNDPrVSHkCI TcSHs7giLqmJDhLNf5SZ0TF8AkrjLkHrGPNn2Dr353 VNS5VODqIf4IM0rdCk1qTJSxKEEFRn0HVNh5DtXbUXS7XVKjJdLwYNTuZap5QVRqHlG0NNkfWUScRhQ+ DUspGIKeBFN6ETVdIXA1QNHrWJO0CNAvQkrmWNVwT7GwZK7hZBWFWy4+DQpzdGFydHhyZWYNCjIxODgy IDxvIELIJp1P ID Date Data Source [id number] 08/31/2020 12:00:00 AM EST [facility] Name Value Range Interpretation Code Description Data Janey rce(s) Supporting Document(s) SARS coronavirus 2 Ag [facility] This lab was ordered by [facility] and reported by [facility]. Procedure Social History Code Duration Value Status Description Data Source(s ) Alcohol intake 02/27/2021 12:00:00 AM EDT Current drinker of al cohol (finding) completed Current drinker of alcohol (finding) [facility] Tobacco use and exposure 02/27/2021 12:00:00 AM EDT Never used co mpleted Never used [facility] Smoking 02/27/2021 12:00:00 AM EDT Current every day smoker co mpleted Current every day smoker [facility] Alcohol intake 11/04/2020 12:00:00 AM EST Current drinker of al cohol (finding) completed Current drinker of alcohol (finding) [facility] Vital Signs ID Date Data Source UNK Name Value Range Interpretation Code Description Data Source(s) Systolic blood pressure 153 mm[Hg] 153 mm[Hg] M EDENT ([facility]) Diastolic blood pressure 89 mm[Hg] 89 mm[Hg] [facility] ([facility]) Heart rate 102 /min 102 /min [facility] Respiratory rate 14 /min 14 /min [facility] ( [facility]) Oxygen saturation in Arterial blood by Pulse oximetry 99 % 99 % [facility] ([facility]) Body temperature 99.1 [degF] 99.1 [degF] [facility] ([facility]) Body weight 120.00 [lb_av] 120.00 [lb_av] MEDEN T ([facility]) Body height 62 [in_i] 62 [in_i] MED[facility] ([facility]) 5'2" Body mass index (BMI) [Ratio] 21.9 kg/m2 21.9 k g/m2 [facility] ([facility]) Body mass index (BMI) [Ratio] 22.9 kg/m2 22.9 k g/m2 [facility] ([facility]) Systolic blood pressure 116 mm[Hg] 116 mm[Hg] M EDENT ([facility]) Diastolic blood pressure 76 mm[Hg] 76 mm[Hg] [facility] ([facility]) Heart rate 65 /min 65 /min [facility] ([facility]) Body height 61.25 [in_i] 61.25 [in_i] [facility] ([facility]) 5'1.25" Body weight 122.00 [lb_av] 122.00 [lb_av] [facility] Oxygen saturation in Arterial blood by Pulse oximetry 99 % 99 % [facility] ([facility]) Air Systolic blood pressure 142 mm[Hg] 142 mm[Hg] [facility] ([facility]) Diastolic blood pressure 78 mm[Hg] 78 mm[Hg] [facility] ([facility]) Heart rate 67 /min 67 /min [facility] ([facility]) Respiratory rate 16 /min 16 /min [facility] ( [facility]) Oxygen saturation in Arterial blood by Pulse oximetry 98 % 98 % [facility] ([facility]) Body temperature 98.0 [degF] 98.0 [degF] [facility] ([facility]) Body weight 120.00 [lb_av] 120.00 [lb_av] [facility]) Body height 62 [in_i] 62 [in_i] [facility] ([facility]) 5'2" Body mass index (BMI) [Ratio] 21.9 kg/m2 21.9 k g/m2 [facility] ([facility])
--- NOTE | 2021-09-16 18:59 | RO ---
OPERATIVE NOTE DATE OF OPERATION: 09/03/2021 PREOPERATIVE DIAGNOSIS: Acute appendicitis. POSTOPERATIVE DIAGNOSIS: Acute appendicitis. PROCEDURE: Laparoscopic appendectomy. SURGEON: Lenin Garcia Jr, MD MANAGER SUBWAY: ANESTHESIA: General endotracheal anesthesia. EBL: Minimal. FLUIDS: Crystalloid. DESCRIPTION OF PROCEDURE: The patient was brought to the operating room, was given general anesthesia. After adequate anesthesia and preoperative antibiotics were given the patient was prepped and draped in usual sterile fashion. A supraumbilical incision was made with skin knife. Blunt dissection was carried down to fascia; fascia was entered with Veress needle and insufflated to 15 mm of pressure. A dilating 12 mm trocar was placed and under direct visualization suprapubic and left lower quadrant 5 mm trocars were placed. The appendix was seen and dissected off surrounding structures using Harmonic scalpel and eventually the mesentery of the appendix was taken down to the cecal wall using Harmonic scalpel. The base of the appendix was transected using GAVIN stapler and placed in an Endo Catch bag, brought out through the umbilicus. The right lower quadrant was copiously irrigated until clear and all trocars were removed under direct visualization. #0 Vicryl was used to close the fascia at the umbilicus and all incisions were closed with 4-0 Vicryl. Steri-Strips and dry, sterile dressing was applied. The patient was awakened, extubated and brought to the recovery room awake, alert and hemodynamically stable. Sponge and needle counts correct x2.
== END 2021-09-04 13:10 | disposition home or self-care (01) ==
LOC: M ED 16:23 → M SDC 16:24 → M MS5PR 22:39 → M ED 22:39 → M MS5PR 22:40 → M ED 22:41 → M SDC 09-04 13:10
PROVIDERS: ATTEND Surgery
DX: K35.890 Other acute appendicitis without perforation or gangrene (principal); F32.9 Major depressive disorder, single episode, unspecified; F17.218 Nicotine dependence, cigarettes, with other nicotine-induced disorders; Z79.899 Other long term (current) drug therapy
CPT/HCPCS: 44970; 87631; 88304; 96361; 96365; 96366; 96375; 96376; 99284; J0131; J1100; J1885; J2250; J2370; J2405; J2543; J2765; J3010

== ENCOUNTER → 2021-09-03 | Outpatient (CLI) | payer OTHER ==
[~2021-09-03] MED LIST: ATEN25TA PO; AUGM875T28 PO; GASTROGRAFIN SOLUTION 30ML (Q9963) As Ordered ONE; ISOVUE-370 76% 100ML VIAL As Ordered ONE; ONDA4TAB6 PO; PARO20TA3 PO; PERC5TAB12 PO
== END ==
LOC: M RAD 13:50
PROVIDERS: ATTEND Nurse Practitioner Family
DX: K35.80 Unspecified acute appendicitis (principal); D18.09 Hemangioma of other sites; N28.1 Cyst of kidney, acquired
CPT/HCPCS: 74178; Q9963; Q9967

== ENCOUNTER → 2021-09-03 | Outpatient (CLI) | payer OTHER ==
[~2021-09-03] MED LIST changes: -GASTROGRAFIN SOLUTION 30ML (Q9963) As Ordered ONE; -ISOVUE-370 76% 100ML VIAL As Ordered ONE
[2021-09-03 16:27] LABS: BASO % 0.2 % (0.0-1.0); EOS % 0.1 % (0.0-3.0); HEMATOCRIT 44.5 % (36.0-47.0); HEMOGLOBIN 14.6 g/dl (12.0-15.5); LYMPH # 1.5 10^3/uL (1.5-5.0); LYMPH % 10.7 % (24.0-44.0); MEAN CORPUSCULAR HEMOGLOBIN 32.9 pg (27.0-33.0); MEAN CORPUSCULAR HGB CONC 32.8 g/dl (32.0-36.5); MEAN CORPUSCULAR VOLUME 100.2 fl (80.0-96.0); MONO # 1.2 10^3/uL (0.0-0.8); MONO % 8.7 % (2.0-8.0); NEUTROPHILS # 10.8 10^3/uL (1.5-8.5); NEUTROPHILS % 79.8 % (36.0-66.0); PLATELET COUNT, AUTOMATED 275 10^3/uL (150-450); RED BLOOD COUNT 4.44 10^6/uL (4.00-5.40); WHITE BLOOD COUNT 13.5 10^3/uL (4.0-10.0)
[2021-09-03 16:53] LABS: ALT/SGPT 26 U/L (12-78); BILIRUBIN,TOTAL 0.7 MG/DL (0.2-1.0); BLOOD UREA NITROGEN 13 MG/DL (7-18); CALCIUM LEVEL 9.2 MG/DL (8.5-10.1); CARBON DIOXIDE LEVEL 25 MEQ/L (21-32); CHLORIDE LEVEL 106 MEQ/L (98-107); GLOMERULAR FILTRATION RATE > 60.0 (>51); GLUCOSE, FASTING 93 MG/DL (70-100); POTASSIUM SERUM 4.2 MEQ/L (3.5-5.1); SODIUM LEVEL 140 MEQ/L (136-145); TOTAL PROTEIN 7.8 GM/DL (6.4-8.2)
== END ==
LOC: M WUC 13:31
PROVIDERS: ATTEND Nurse Practitioner Family
DX: R10.31 Right lower quadrant pain (principal)

== ENCOUNTER 2022-05-13 16:32 | Emergency (ER) | payer OTHER ==
[~2022-05-13] VITALS: Ht 157.5 cm; Wt 53.2 kg
[2022-05-13 16:44] VITALS: BP 147/72
[2022-05-13] MEDS ORDERED: AMPICILLIN SOD/SULBACTAM SOD 3 GM in D5W MINI-BAG PLUS 100 ML IV ONE (17:35)
[2022-05-13] MEDS ORDERED: MORPHINE 4 MG/ML 1ML VIAL/SYRINGE IV ONE (17:35)
[2022-05-13 18:16] LABS: BASO % 0.2 % (0.0-1.0); EOS # 0.1 10^3/uL (0.0-0.5); EOS % 0.8 % (0.0-3.0); HEMATOCRIT 41.6 % (36.0-47.0); HEMOGLOBIN 13.8 g/dl (12.0-15.5); LYMPH # 1.8 10^3/uL (1.5-5.0); LYMPH % 20.1 % (24.0-44.0); MEAN CORPUSCULAR HGB CONC 33.2 g/dl (32.0-36.5); MEAN CORPUSCULAR VOLUME 99.5 fl (80.0-96.0); MONO # 0.7 10^3/uL (0.0-0.8); MONO % 7.9 % (2.0-8.0); NEUTROPHILS # 6.2 10^3/uL (1.5-8.5); NEUTROPHILS % 70.8 % (36.0-66.0); PLATELET COUNT, AUTOMATED 261 10^3/uL (150-450); RED BLOOD COUNT 4.18 10^6/uL (4.00-5.40); WHITE BLOOD COUNT 8.8 10^3/uL (4.0-10.0)
[2022-05-13] MEDS ORDERED: LIDOCAINE 2% MDV 20ML VIAL SC ONE ×2 (18:35→19:25)
[2022-05-13 18:51] LABS: RSV AMPLIFICATION NEGATIVE (NEGATIVE)
[2022-05-13] MEDS ORDERED: HYDROMORPHONE HCL 0.5 MG/ 0.5 ML SYRINGE (J1170 PER 1) IV ONE (18:55)
[2022-05-13] MEDS ORDERED: NEOSPORIN OINT 0.9 GM PKT TOP ONE (19:25)
[2022-05-13] MEDS ORDERED: OXYCODONE/APAP 5MG/325MG(HOME DOSE PACK) PO ONE (19:45)
[2022-05-13] MEDS ORDERED: AMOX875T2 PO (19:46)
== END 2022-05-13 20:25 | disposition home or self-care (01) ==
LOC: EDBD 16:32 → M ED 16:32 → EDSEX 16:32 → M ED 20:25
DX: S66.821A Laceration of other specified muscles, fascia and tendons at wrist and hand level, right hand, initial encounter (principal); S71.131A Puncture wound without foreign body, right thigh, initial encounter; S41.131A Puncture wound without foreign body of right upper arm, initial encounter; S91.011A Laceration without foreign body, right ankle, initial encounter; W54.0XXA Bitten by dog, initial encounter; Y92.89 Other specified places as the place of occurrence of the external cause; Y99.0 Civilian activity done for income or pay; F32.A Depression, unspecified; F17.200 Nicotine dependence, unspecified, uncomplicated
CPT/HCPCS: 12002; 13132; 73110; 73610; 80047; 85025; 87631; 96365; 96375; 99284; J0295; J1170; J2270

== ENCOUNTER 2022-05-15 09:26 | Day surgery (SDC) | payer OTHER ==
[~2022-05-15] VITALS: Ht 157.5 cm; Wt 54.1 kg
[~2022-05-15 09:26] MED LIST changes: +AMOX875T2 PO; +ceFAZolin SOD 2 GM in IV 1 EA IV ONE
[2022-05-15] MEDS ORDERED: LR 1,000 ML IV SCH ×3 (10:00→15:30)
[2022-05-15] MEDS ORDERED: LIDOCAINE 2% 100MG/5ML SDV (FOR ANES.) As Ordered ONE (11:37)
[2022-05-15] MEDS ORDERED: propofoL 200 MG/20 ML VIAL As Ordered ONE (11:37)
[2022-05-15] MEDS ORDERED: fentaNYL 100 MCG/2 ML INJECTION As Ordered ONE (11:37)
[2022-05-15] MEDS ORDERED: dexameTHASONE 4 MG/ML 1ML VIAL (J1100 PER 1MG) As Ordered ONE (11:38)
[2022-05-15] MEDS ORDERED: MIDAZOLAM INJ 2MG/2ML VIAL (J2250 PER 1MG) As Ordered ONE (11:38)
[2022-05-15] MEDS ORDERED: ONDANSETRON 4MG 2ML VIAL As Ordered ONE (11:38)
[2022-05-15] MEDS ORDERED: UNASYN 3GM VIAL As Ordered ONE ×2 (13:45→14:05)
[2022-05-15] MEDS ORDERED: ACETAMINOPHEN 1000MG 100ML IV BTL (OFIRMEV) (J0131 PER 10MG) As Ordered ONE (14:27)
[2022-05-15] MEDS ORDERED: KETOROLAC 60MG 2ML VIAL As Ordered ONE (14:27)
[2022-05-15] MEDS ORDERED: POLYSPORIN TOPICAL OINTMENT 15GM As Ordered ONE (14:32)
[2022-05-15] MEDS ORDERED: oxyCODONE 5MG TAB PO PRN (15:30)
[2022-05-15] MEDS ORDERED: MORPHINE 2 MG/ML 1ML VIAL IV PRN (15:30)
[2022-05-15] MEDS ORDERED: fentaNYL 100 MCG/2 ML INJECTION IV PRN (15:30)
[2022-05-15] MEDS ORDERED: ONDANSETRON 4MG 2ML VIAL IV PRN (15:30)
[2022-05-15 15:55] VITALS: BP 106/54
== END 2022-05-15 16:20 | disposition home or self-care (01) ==
LOC: M SDC 09:26
PROVIDERS: ATTEND Orthopaedic Surgery Hand Surgery
DX: S61.451A Open bite of right hand, initial encounter (principal); S81.851A Open bite, right lower leg, initial encounter; S91.051A Open bite, right ankle, initial encounter; W54.0XXA Bitten by dog, initial encounter; Y92.89 Other specified places as the place of occurrence of the external cause; Y99.0 Civilian activity done for income or pay; I25.10 Atherosclerotic heart disease of native coronary artery without angina pectoris; Z79.899 Other long term (current) drug therapy; F17.200 Nicotine dependence, unspecified, uncomplicated
CPT/HCPCS: 11011; 11043; 12002; 12034; 87070; 87075; J0131; J0295; J0690; J1100; J1885; J2250; J2405; J3010

== ENCOUNTER 2024-01-05 11:59 | Day surgery (SDC) | payer OTHER ==
[~2024-01-05] VITALS: Ht 157.5 cm; Wt 54.4 kg
[~2024-01-05 11:59] MED LIST changes: -ceFAZolin SOD 2 GM in IV 1 EA IV ONE
[2024-01-05] MEDS: NS 1,000 ML IV ONE (12:22)
[2024-01-05] MEDS ORDERED: propofoL 200 MG/20 ML VIAL As Ordered ONE (13:31)
[2024-01-05 13:43] VITALS: TEMP 97
[2024-01-05 14:04] VITALS: BP 114/55; O2SAT 100
== END 2024-01-05 14:12 | disposition home or self-care (01) ==
LOC: M OPP 11:59
PROVIDERS: ATTEND Internal Medicine Gastroenterology
DX: Z12.11 Encounter for screening for malignant neoplasm of colon (principal); Z12.12 Encounter for screening for malignant neoplasm of rectum; D12.6 Benign neoplasm of colon, unspecified; K64.0 First degree hemorrhoids; Z90.49 Acquired absence of other specified parts of digestive tract; Z79.899 Other long term (current) drug therapy; F17.210 Nicotine dependence, cigarettes, uncomplicated

== ENCOUNTER → 2025-06-06 | Outpatient (CLI) | payer OTHER, MEDICARE ==
[~2025-06-06] MED LIST changes: +ONDA-282 PO; -ONDA4TAB6 PO
== END ==
LOC: M WHC 14:55
PROVIDERS: ATTEND Physician Assistant Medical
DX: Z12.31 Encounter for screening mammogram for malignant neoplasm of breast (principal); R92.333 Mammographic heterogeneous density, bilateral breasts